=== PATIENT | female | born 1970 | race Two or more races ===

== ENCOUNTER 2024-03-29 10:26 | Inpatient (IN) | payer MEDICAID, SELFPAY ==
[2024-03-29] VITALS (51 sets, daily range): BP systolic 127–182; BP diastolic 61–126; PULSE 66–92; RESP 13–98; TEMP 35.9–37.4; O2SAT 92–99; BMI 37.6
--- NOTE | 2024-03-29 10:39 | XR_ITS ---
Examination: CTA carotids with intravenous contrast CTA brain, head with intravenous contrast. 2-D sagittal, coronal reconstructions. 3-D reconstructions. Exam date and time: March 29, 2024 at 1056 hours INDICATIONS: Stroke alert, onset left-sided facial paresthesias altered mental status pain at the base of the head beginning this morning CTDI: vol (mGy) 29.7 DLP: (mGycm) 428 Technique: Multiple CTA axial brain, head carotid images post intravenous contrast injection 75 cc, Isovue-370. 2-D sagittal, coronal reconstructions. 3-D reconstructions, 3-D post processing including vascular maximum intensity projection images. Low dose protocols were performed. One or more of the following dose reduction techniques were used; automated exposure control, adjustment of the mA and/or KV according to patient size, use of iterative reconstruction technique. Findings: No significant common carotid carotid bifurcation or internal carotid artery stenoses Dominant left vertebral artery with no critical stenoses No cerebral large vessel arterial occlusions, thrombus, dissection or cerebral aneurysm IMPRESSION: No significant neck arterial stenoses No cerebral large vessel arterial occlusions, thrombus, dissection or cerebral aneurysm Brain MRI MRA without contrast follow-up would best assess for demyelinating disease, acute ischemic change
--- NOTE | 2024-03-29 10:39 | XR_ITS ---
Examination: CT brain head without contrast. 2-D sagittal coronal reconstructions Date and time of exam:March 29, 2024 1043 hours INDICATIONS: Stroke alert onset left-sided facial paresthesias and pain at the base of the head, history CVA right basal ganglia CTDI: vol (mGy):53 DLP: (mGycm):1028 Technique: Multiple CT axial sections of the brain have been obtained, 5 mm slice thickness. Contrast has not been administered. 2-D sagittal, coronal reconstructions have been obtained Low dose protocols were performed. One or more of the following dose reduction techniques were used; automated exposure control, adjustment of the mA and/or KV according to patient size, use of iterative reconstruction technique. Findings: No significant ventricular enlargement. Small old infarct right basal ganglia Intra-axial or extra-axial hemorrhage density is not seen. No mass effect or midline shift Basal cisterns are not remarkable. Fourth ventricle is midline. Cranial vault intact. Impression: Negative for acute hemorrhage, mass effect or midline shift Brain MRI follow-up would best assess for demyelinating disease, acute ischemic change
--- NOTE | 2024-03-29 10:39 | EKG_ITS ---
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
--- NOTE | 2024-03-29 10:43 | PD.EDNEURO ---
Neuro Symptoms Deficit-RME/HPI General Chief Complaint: Neuro Symptoms/Deficit Stated Complaint: concerned for stroke Time Seen by Provider: 03/29/24 10:37 Arrival date/time: 03/29/24 10:26 RME / HPI RME / HPI Narrative: 53 year old female with history of CVA 5 years ago, hypertension, hyperlipidemia presents to the ED for complaint of I think I'm having a stroke . Patient states she woke up at around 05:00 am today at her usual state of health. Says she used the restroom, had breakfast, drank coffee, and watched a movie. States she was having a posterior headache/neck pain and went to lay in bed where shortly after began to dose off and was woken up by the numbness sensation ~ 09:30am. States her symptoms today are similar the previous CVA 5 years ago and is concerned. Denies fevers, chills, vision changes, n/v, change in speech or gait. Mentioned she is currently on Aspirin 325mg, no other blood thinner use. Related Data Home Medications ?Medication ?Instructions ?Recorded ?Confirmed Amlodipine Bes * (NORVASC *) 1 tab PO QDAY #0 tabs 10/19/16 12/29/21 aspirin 325 mg tablet 81 mg PO 1XD 12/29/21 03/29/24 hydrochlorothiazide 25 mg tablet 25 mg PO 1XD 12/29/21 03/29/24 losartan 100 mg tablet 100 mg PO 1XD 12/29/21 03/29/24 amlodipine 5 mg tablet 5 mg PO QDAY 03/29/24 03/29/24 Allergies Allergy/AdvReac Type Severity Reaction Status Date / Time No Known Allergies Allergy Unverified 03/29/24 10:28 Review of Systems Review of Systems Narrative Review of Systems: Gen: No fever, no chills, no weight loss EYES: No discharge, no visual changes, no pain HEENT: No ear pain, no congestion, no sore throat PULM: no shortness of breath, no cough, no congestion CV: No chest pain, no dyspnea on exertion, no palpitations, no chest tightness GI: No nausea, no vomiting, no diarrhea, no pain, no constipation : No frequency, no urgency,? no dysuria Musc/skel: +neck pain. No joint pain, no back pain Skin: No rash, no ecchymosis, no lesions Psyc: No hallucinations, no depression Heme/Lymph: No easy bleeding or bruising tendencies Neuro: +Left sided weakness, + headache Past Medical History Past Medical History NEUROLOGIC: Positive Neurological Disorders and Cerebrovascular Accident CARDIAC: Positive Cardiac Disorders, Hypercholesterolemia and Hypertension GASTROINTESTINAL: Positive Obesity REPRODUCTIVE: Positive Previous Pregnancies (4) Family History FAMILY HISTORY: Negative Family Psychiatric Problems, Family Respiratory Disorders, Family Cardiac Disorders, Family Gastrointestinal Problems, Family Cancer or Family Surgery Social History SMOKING STATUS: Never smoker SECOND HAND EXPOSURE: No SUBSTANCE USE: does not use ED Exam Narrative Physical exam: GENERAL APPEARANCE: AxOx4, nontoxic appearing. HEENT: NC, AT. MMM. EOMI, clear conjunctiva, oropharynx clear. NECK: Supple without lymphadenopathy. No stiffness or restricted ROM. HEART: Normal rate and regular rhythm, normal S1/S1, no m/r/g LUNGS: CTAB, moving air well. No crackles or wheezes are heard. ABDOMEN: Soft, nontender, nondistended with good bowel sounds heard. BACK: No midline C/T/L spine pain or deformity, No CVAT, no obvious deformity. EXTREMITIES: Without cyanosis, clubbing or edema. MUSCULOSKELETAL: FROM of all major joints, no chest tenderness NEUROLOGICAL: Normal speech, no facial droop, mild drift of the left upper extremity, gait not tested. Alert and oriented. Skin: Warm and dry without any rash. Course Quality Measures Suspected type of Stroke: Acute Ischemic Last known well (date): 03/29/24 Last known well (time): 09:30 Tenecteplase given: within 60 min of arrival (TNKase administered at 11:20 am ) stroke Orders Category Date Time Status Assess for orolingual angioedema NOW Care 03/29/24 11:15 Ordered Bedside Blood Glucose NOW Care 03/29/24 10:39 Active Commercial Underwriter NOW Care 03/29/24 10:39 Active Continuous Pulse Oximetry NOW Care 03/29/24 10:39 Completed EKG (ED ONLY) *Do not use* NOW Care 03/29/24 10:39 Completed In and Out Catheter NEEDED Care 03/29/24 10:39 Active Insert IV NOW Care 03/29/24 10:39 Active NIH Stroke Scale Q4H START 00 Care 03/29/24 11:02 Active NIH Stroke Scale now Care 03/29/24 10:39 Active NPO NOW Care 03/29/24 10:39 Active NPO NOW Care 03/29/24 11:02 Active Neuro Check [id number] Care 03/29/24 11:02 Active Neuro Check Q30MIN Care 03/29/24 10:40 Active Nurse Swallow Screen x1 Care 03/29/24 10:39 Active Consult to Neurology / Tele-Neurology Routine Cons 03/29/24 10:39 Active Diet NPO (NOW) Diet 03/29/24 11:[address] angio stroke protocol Stat Exams 03/29/24 10:[address] stroke protocol Stat Exams 03/29/24 10:39 Completed EKG (ED Only) Stat Exams 03/29/24 10:39 Ordered CBC Stat Lab 03/29/24 10:48 Completed Comprehensive Metabolic Panel Stat Lab 03/29/24 10:48 Completed Magnesium Stat Lab 03/29/24 10:48 Completed Partial Thromboplastin Time Stat Lab 03/29/24 10:49 Completed Prothrombin Time with INR Stat Lab 03/29/24 10:49 Completed Troponin I Stat Lab 03/29/24 10:48 Completed Urinalysis Stat Lab 03/29/24 10:39 Ordered Urine Culture Stat Lab 03/29/24 10:39 Ordered Labetalol IV [Trandate IV] Med 03/29/24 11:02 Discontinued 10 mg IVP PRNMRX1 PRN Labetalol IV [Trandate IV] Med 03/29/24 11:02 Discontinued 10 mg IVP PRNMRX1 PRN Labetalol IV [Trandate IV] Med 03/29/24 11:04 Discontinued 100 mg .ROUTE .STK-MED ONE Nicardipine/Ns 20Mg Ivpb [Cardene Ivpb] Med 03/29/24 11:02 Hold 20 mg in 200 ml IV 5 mg/hr Ondansetron Inj [Zofran Inj] Med 03/29/24 10:39 Active 4 mg IV Q4HR PRN Tenecteplase Inj [TNKase Inj] Med 03/29/24 11:02 Discontinued 23 mg IV X1 ONE Tenecteplase Inj [TNKase Inj] Med 03/29/24 11:05 Discontinued 50 mg .ROUTE .STK-MED ONE Oxygen Delivery NOW RT 03/29/24 10:39 Completed Reevaluation(s) Reevaluation #1: Patient reports the numbness has resolved although reports she still has neck pain. Time: 11:45 Vital Signs Vital signs: Vital Signs Temperature 99.3 F 03/29/24 10:32 Pulse Rate 92 03/29/24 10:32 Respiratory Rate 20 03/29/24 10:32 Blood Pressure 176/110 H 03/29/24 10:32 Pulse Oximetry (%) 97 03/29/24 10:32 Oxygen Delivery Method Room Air 03/29/24 10:32 Pulse ox is 97% on room air which is adequate. Neuro Symptoms / Deficit MDM Narrative MDM Narrative:: Sintia Hoang am scribing for and in the presence of Dr. Diaz. Patient data External records reviewed:: [facility] previous records (I reviewed admission from 12/29/2021 through 12/31/2021 for acute acalculous cholecystitis. Patient reports she was evaluated here 5 years ago diagnosed with a stroke however there are no records of that. ) Clinical information provided by:: patient Social determinants that could affect healthcare access:: none Patient has the following chronic illnesses:: CVA, HTN, hyperlipidemia How is presenting disease/condition affected by chronic disease/condition?: exacerbated by Evaluation data The following diagnostics were reviewed and interpreted by me:: lab results, radiology exam(s) (Head CT my interpretation, no SAH.) and EKG tracing(s) Lab and/or radiology exams considered but not ordered:: None Interpretation Summary: Ordering Physician: Tyrese Diaz MD Date of Service: 03/29/24 Procedure(s): CT stroke protocol Accession Number(s): [id number] cc: Tyrese Diaz MD; Levi Breen MD~ Examination: CT brain head without contrast. 2-D sagittal coronal reconstructions Date and time of exam:March 29, 2024 1043 hours INDICATIONS: Stroke alert onset left-sided facial paresthesias and pain at the base of the head, history CVA right basal ganglia CTDI: vol (mGy):53 DLP: (mGycm):1028 Technique: Multiple CT axial sections of the brain have been obtained, 5 mm slice thickness. Contrast has not been administered. 2-D sagittal, coronal reconstructions have been obtained Low dose protocols were performed. One or more of the following dose reduction techniques were used; automated exposure control, adjustment of the mA and/or KV according to patient size, use of iterative reconstruction technique. Findings: No significant ventricular enlargement. Small old infarct right basal ganglia Intra-axial or extra-axial hemorrhage density is not seen. No mass effect or midline shift Basal cisterns are not remarkable. Fourth ventricle is midline. Cranial vault intact. Impression: Negative for acute hemorrhage, mass effect or midline shift Brain MRI follow-up would best assess for demyelinating disease, acute ischemic change Dictated By:Levi Breen MD Signed By:<Electronically signed by Levi Breen MD in OV>03/29/24 1052 Ordering Physician: Tyrese Diaz MD Date of Service: 03/29/24 Procedure(s): CT angio stroke protocol Accession Number(s): [id number] cc: Tyrese Diaz MD; Levi Breen MD~ Examination: CTA carotids with intravenous contrast CTA brain, head with intravenous contrast. 2-D sagittal, coronal reconstructions. 3-D reconstructions. Exam date and time: March 29, 2024 at 1056 hours INDICATIONS: Stroke alert, onset left-sided facial paresthesias altered mental status pain at the base of the head beginning this morning CTDI: vol (mGy) 29.7 DLP: (mGycm) 428 Technique: Multiple CTA axial brain, head carotid images post intravenous contrast injection 75 cc, Isovue-370. 2-D sagittal, coronal reconstructions. 3-D reconstructions, 3-D post processing including vascular maximum intensity projection images. Low dose protocols were performed. One or more of the following dose reduction techniques were used; automated exposure control, adjustment of the mA and/or KV according to patient size, use of iterative reconstruction technique. Findings: No significant common carotid carotid bifurcation or internal carotid artery stenoses Dominant left vertebral artery with no critical stenoses No cerebral large vessel arterial occlusions, thrombus, dissection or cerebral aneurysm IMPRESSION: No significant neck arterial stenoses No cerebral large vessel arterial occlusions, thrombus, dissection or cerebral aneurysm Brain MRI MRA without contrast follow-up would best assess for demyelinating disease, acute ischemic change Dictated By:Levi Breen MD Signed By:<Electronically signed by Levi Breen MD in OV>03/29/24 1116 Medications / Prescriptions Medications or Prescriptions considered but not ordered:: None Medication administrations:: Medication Administration History Acetaminophen (Acetaminophen 325 Mg Tablet) 650 mg PO Q4HR PRN PRN Reason: Pain Scale 1-3 or Fever >100.4 Stop: 04/28/24 13:10 Amlodipine Besylate (Amlodipine Besylate 5 Mg Tablet) 5 mg PO QDAY [place] Stop: 04/29/24 08:59 Last Admin: 03/30/24 08:11 Dose: 5 mg Documented By: AG Atorvastatin Calcium (Atorvastatin Calcium 20 Mg Tablet) 40 mg PO HS [place] Stop: 04/28/24 20:59 Last Admin: 03/29/24 20:10 Dose: 40 mg Documented By: MICHAEL Nicardipine/Sodium Chloride (Cardene Ivpb) 20 mg in 200 mls @ 50 mls/hr IV .Q4H PRN; Protocol PRN Reason: Per Nicardipine Stroke Protocol Stop: 04/28/24 11:01 Last Titration: 03/30/24 08:22 Dose: 0 mg/hr, 0 mls/hr Documented By: Titration: 03/30/24 08:00 Dose: 2.5 mg/hr, 25 mls/hr Documented By: Titration: 03/30/24 07:00 Dose: 2.5 mg/hr, 25 mls/hr Documented By: Titration: 03/30/24 06:00 Dose: 2.5 mg/hr, 25 mls/hr Documented By: Titration: 03/30/24 05:00 Dose: 2.5 mg/hr, 25 mls/hr Documented By: Titration: 03/30/24 04:00 Dose: 2.5 mg/hr, 25 mls/hr Documented By: Titration: 03/30/24 03:00 Dose: 2.5 mg/hr, 25 mls/hr Documented By: Titration: 03/30/24 02:00 Dose: 2.5 mg/hr, 25 mls/hr Documented By: Titration: 03/30/24 01:00 Dose: 2.5 mg/hr, 25 mls/hr Documented By: Admin: 03/30/24 00:35 Dose: 2.5 mg/hr, 25 mls/hr Documented By: Titration: 03/30/24 00:35 Dose: Infused Documented By: Titration: 03/30/24 00:00 Dose: 2.5 mg/hr, 25 mls/hr Documented By: Titration: 03/29/24 23:00 Dose: 2.5 mg/hr, 25 mls/hr Documented By: Titration: 03/29/24 22:00 Dose: 2.5 mg/hr, 25 mls/hr Documented By: Titration: 03/29/24 21:00 Dose: 2.5 mg/hr, 25 mls/hr Documented By: Titration: 03/29/24 20:00 Dose: 2.5 mg/hr, 25 mls/hr Documented By: Titration: 03/29/24 19:00 Dose: 2.5 mg/hr, 25 mls/hr Documented By: Titration: 03/29/24 17:34 Dose: 2.5 mg/hr, 25 mls/hr Documented By: Admin: 03/29/24 17:19 Dose: 5 mg/hr, 50 mls/hr Documented By: Lorazepam (Lorazepam 0.5 Mg Tablet) 0.5 mg PO Q4HR PRN PRN Reason: CIWA Score 2-6 Stop: 04/03/24 17:42 Lorazepam (Lorazepam 0.5 Mg Tablet) 1 mg PO Q4HR PRN PRN Reason: CIWA SCORE 7-11 Stop: 04/03/24 17:42 Lorazepam (Lorazepam 0.5 Mg Tablet) 2 mg PO Q4HR PRN PRN Reason: CIWA SCORE 12-15 Stop: 04/03/24 17:42 Losartan Potassium (Losartan Potassium 25 Mg Tablet) 100 mg PO QDAY [place] Stop: 04/29/24 06:59 Last Admin: 03/30/24 07:20 Dose: 100 mg Documented By: AG Ondansetron HCl (Ondansetron Inj 2 Mg/Ml Inj 2 Ml) 4 mg IV Q4HR PRN PRN Reason: NAUSEA OR VOMITING Stop: 04/28/24 10:38 Discontinued Medications Diphenhydramine HCl (Diphenhydramine Inj 50 Mg/Ml Vial) 25 mg IVP X1 ONE Stop: 03/29/24 16:38 Last Admin: 03/29/24 16:54 Dose: 25 mg Documented By: AT Labetalol HCl (Labetalol Inj 5 Mg/Ml Vial 20 Ml) 10 mg IVP PRNMRX1 PRN PRN Reason: SBP> 185 mmHg and/or DBP greater than 110 Stop: 03/29/24 13:02 Labetalol HCl (Labetalol Inj 5 Mg/Ml Vial 20 Ml) 10 mg IVP PRNMRX1 PRN PRN Reason: SBP> 180 mmHg or DPB> 105 Last Admin: 03/29/24 17:04 Dose: 10 mg Documented By: Admin: 03/29/24 16:07 Dose: 10 mg Documented By: RM Labetalol HCl (Labetalol Inj 5 Mg/Ml Vial 20 Ml) Confirm Administered Dose 100 mg .ROUTE .STK-MED ONE Stop: 03/29/24 11:05 Last Admin: 03/29/24 11:11 Dose: Not Given Documented By: SL Non-Admin Reason: Override Medication Lorazepam (Lorazepam 2 Mg/Ml Vial) 1 mg IVP X1 ONE Stop: 03/30/24 11:22 Last Admin: 03/30/24 11:26 Dose: 1 mg Documented By: AG Nicardipine HCl (Nicardipine 20 Mg Capsule) 20 mg PO TID [facility] Stop: 04/29/24 06:59 Potassium Chloride (Potassium Chloride 20 Meq Tabcr) 40 meq PO X1 ONE Stop: 03/30/24 07:36 Last Admin: 03/30/24 08:12 Dose: 40 meq Documented By: AG Potassium Chloride (Potassium Chloride 20 Meq Tabcr) 20 meq PO X1 ONE Stop: 03/30/24 10:31 Last Admin: 03/30/24 10:22 Dose: 20 meq Documented By: BAL Tenecteplase (Tenecteplase Inj 50 Mg Vial) 23 mg 0.25 mg/kg (23 mg) IV X1 ONE Stop: 03/29/24 11:03 Last Admin: 03/29/24 11:18 Dose: 23 mg Documented By: TAISHA Comments: Tenecteplase (Tenecteplase Inj 50 Mg Vial) Confirm Administered Dose 50 mg .ROUTE .STK-MED ONE Stop: 03/29/24 11:06 Last Admin: 03/29/24 11:11 Dose: Not Given Documented By: TAISHA Non-Admin Reason: Override Medication See above Consultations Consultation(s) initiated? (list below): Yes Consultation #1 (Physician, Specialty, Details): I spoke with teleneurologist Dr. Pedraza. States patient is a candidate for TNKase and will place the order. Risks and benefits were discussed and patient is in agreement. Time: 11:05 Consultation #2 (Physician, Specialty, Details): I spoke with answering service telephone operator Dr. Collado. Discussed patients PMHx, HPI, ED course, exam findings, labs, and radiology results. He accepts the patient for admission. Time: 11:50 Diagnosis Neuro Differential Diagnosis: subarachnoid hemorrhage, cerebrovascular accident and transient cerebral ischemia Most likely diagnosis given after review of the tests above:: CVA Admission Indicated Admission indicated?: indicated Admission Request Was there a request for admission?: Yes Admission Attestation Admission request attestation: Discussed case with [] from Hospitalist service regarding admission. Discussed patients ED course, exam findings, labs, and radiology results. The Hospitalist [agrees,declines] to accept the patient for admission. Disposition Plan Disposition Plan: Admit Critical Care Time Critical Care Time Critical Care Time: Yes Total Critical Care Time (min.): 60 Attestation: The high probability of sudden, clinically significant deterioration in the patient's condition required the highest level of my preparedness to intervene urgently. The services I provided to this patient were to treat and/or prevent clinically significant deterioration. Services included the following: chart data review, reviewing nursing notes and/or old charts, documentation time, remediation bioanalytics consultant collaboration regarding findings and treatment options, medication orders and management, direct patient care, vital sign assessments and ordering, interpreting and reviewing diagnostic studies and lab tests. Aggregate critical care time includes only time during which I was engaged in work directly related to the patient's care, as described above, whether at bedside or elsewhere in the Emergency Department. It did not include time spent performing other reported procedures or the services of residents, students, nurses or physician assistants. Discharge Plan Plan Patient Disposition: Admit Acute Care w/in Hospital Problem List Clinical Impression: Cerebrovascular accident
[2024-03-29 10:59] LABS: Basophils # (Auto) 0.1 Thou/mm3 (0.0-0.2); Basophils % (Auto) 1 % (0-2.5); Eosinophils # (Auto) 0.1 Thou/mm3 (0.0-0.5); Eosinophils % (Auto) 2 % (0-10); Hematocrit 40.1 % (36.0-46.0); Hemoglobin 13.9 g/dL (12.0-16.0); Immature Granulocytes % (Auto) 1 % (0-0); Immature Granulocytes Auto 0.04 Thou/mm3 (0.00-0.00); Lymphocytes % (Auto) 28 % (10-50); Mean Corpuscular HGB Conc 34.7 g/dl (31.0-37.0); Mean Corpuscular Hemoglobin 29.3 pg (25.0-35.0); Mean Corpuscular Volume 84 fL (80-100); Monocytes # (Auto) 0.6 Thou/mm3 (0.0-0.8); Monocytes % (Auto) 8 % (0-12); Neutrophils # (Auto) 4.3 Thou/mm3 (1.8-7.7); Neutrophils % (Auto) 60 % (37-80); Nucleated Red Blood Cell % 0 /100 WBC (0); Platelet Count 262 Thou/mm3 (140-440); RDW Standard Deviation 39.5 fL (36.4-46.3); Red Blood Count 4.75 Miln/mm3 (4.00-5.20); White Blood Count 7.2 Thou/mm3 (3.6-11.0)
[2024-03-29 11:16] LABS: Partial Thromboplastin Time 24.3 Seconds (22.0-36.0); Prothrombin Time 10.5 Seconds (9.0-12.2)
[2024-03-29] MEDS: TENECTEPLASE INJ 50 MG VIAL 23 MG IV (11:18)
[2024-03-29 11:21] LABS: Alanine Aminotransferase 18 U/L (10-49); Albumin, Serum 4.6 gm/dL (3.5-5.0); Albumin/Globulin Ratio 1.8 (1.2-2.2); Alkaline Phosphatase 111 U/L (46-116); Anion Gap 9 (7-16); Aspartate Amino Transferase 16 U/L (0-34); BUN/Creatinine Ratio 21 Ratio (12-20); Bilirubin,Total 0.3 mg/dL (0.3-1.2); Blood Urea Nitrogen 15 mg/dL (9-23); Calcium 9.2 mg/dL (8.3-10.6); Calcium (Corrected) 9.2 mg/dL (8.5-10.1); Carbon Dioxide 26.4 mMol/L (20.0-31.0); Chloride 107 mMol/L (98-107); Creatinine (Component) 0.7 mg/dL (0.6-1.3); Estimated Creatinine Clearance 98.9 mL/min (>60); Globulin 2.6 gm/dL (2.3-3.5); Glucose 152 mg/dL (74-106); Osmolality,Calculated 286 (275-295); Potassium 3.3 mMol/L (3.4-5.1); Sodium 142 mMol/L (136-145); Total Protein 7.2 gm/dL (5.7-8.2); Troponin I < 0.002 ng/mL (0.0-0.045); eGFR > 60 See Note
--- NOTE | 2024-03-29 12:13 | PC.NURSE ---
Per pt she went to lay down for a nap, got a bad headache at the base of her head, then felt some tingling to the left side arm and leg. Pt had a stroke in 2016, where her left side was affected. stroke alert was initiated, and stroke protocol followed. pt did receive TNK (see MAR). This RN is currently at bedside, also pts at bedside attentive to pt. Pt currently talking on cellphone, VSS on tele.
--- NOTE | 2024-03-29 12:44 | PD.TNEURO ---
Tele Neuro Consultation Consultation Date 03/29/24 Most Recent Vital Signs Last Vital Signs Temp 99.3 F 03/29/24 10:32 Pulse 76 03/29/24 12:33 Resp 16 03/29/24 12:33 BP 160/72 H 03/29/24 12:33 Pulse Ox 97 03/29/24 12:33 O2 Del Method Room Air 03/29/24 12:33 Laboratory-Coagulation Panel PT 10.5 Seconds (9.0-12.2) 03/29/24 10:49 INR 1.0 (0.9-1.3) 03/29/24 10:49 APTT 24.3 Seconds (22.0-36.0) 03/29/24 10:49 Consultation Narrative [facility] TeleNeurology Consult Services Patient Name:???Desirae Gaona Date of :???1970 Identification Number:??? Date of Service:???03/29/2024 10:39:21 Diagnosis:?I63.89 - Cerebrovascular accident (CVA) due to other mechanism ([facility]) Impression: ?Desirae Gaona is a 53 yo F w/ a hx of stroke who presents with left sided weakness. Exam is notable for left hemiparesis and left hemisensory disturbance. Also has gait impairment due to LLE weakness. Head CT showed no acute intracranial pathology. No LVO on CTA. Presentation is concerning for acute ischemic stroke. Decided to proceed with tenecteplase after discussing the risks and benefit of treatment with the patient. Recommend the following: ? - Patient be admitted to the inpatient hospitalist service and be monitored in the ICU ?- Monitor and document vital signs/blood pressure with neuro checks/NIHSS for the first 24 hrs using the following parameters: ?- Check every 15 min for 2 hours following IV tenecteplase administration ?- Then check every 30 min for 6 hours ?- Then check every 1 hour for 16 hours ?- Allow permissive HTN. If SBP > 180 or DBP > 105 on 2 consecutive checks, then administer PRN IV antihypertensive meds. ?- Repeat head CT at 24 hrs. ?- MRI brain w/o contrast. 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 Our recommendations are outlined below. Recommendations: IV Tenecteplase recommended. I confirmed the following. (Patient name, , MRN, Blood Pressure, dose of Thrombolytic and waste, weight completed by stretcher/scale not stated weight, have ED staff inform ED MD of thrombolytic decision) IV Tenecteplase Total Dose ? 23.4 mg Routine post Thrombolytic monitoring including neuro checks and blood pressure control during/after treatment Monitor blood pressure Check blood pressure and neuro assessment every 15 min for 2 h, then every 30 min for 6 h, and finally every hour for 16 h. Manage Blood Pressure per post Thrombolytic protocol. ? Follow designated hospital protocol for admission and post thrombolytic care ? CT brain 24 hours post Thrombolytic ? NPO until swallowing screen performed and passed ? No antiplatelet agents or anticoagulants (including heparin for DVT prophylaxis) in first 24 hours ? No Ortiz catheter, nasogastric tube, arterial catheter or central venous catheter for 24 hr, unless absolutely necessary ? Telemetry ? Bedside swallow evaluation ? HOB less than 30 degrees ? Euglycemia ? Avoid hyperthermia, PRN acetaminophen ? DVT prophylaxis ? Inpatient Neurology Consultation ? Stroke evaluation as per inpatient neurology recommendations Discussed with ED physician Advanced Imaging:CTA Head and Neck Completed. LVO:No Patient in not a candidate for IVON Metrics: Last Known Well: 03/29/2024 09:30:00 Dispatch Time: 03/29/2024 10:39:21 Arrival Time: 03/29/2024 10:26:10 Initial Response Time: 03/29/2024 10:41:31Symptoms: left sided weakness and numbness. Initial patient interaction: 03/29/2024 10:44:00 NIHSS Assessment Completed: 03/29/2024 10:48:00Patient is a candidate for Thrombolytic. Thrombolytic Medical Decision: 03/29/2024 11:10:00 Needle Time: 03/29/2024 11:19:58Weight Noted by Staff: 93.[address] head showed no acute hemorrhage or acute core infarct. Primary Provider Notified of Diagnostic Impression and Management Plan on: 03/29/2024 11:31:00 Thrombolytic Contraindications: Last Known Well > 4.5 hours:?No CT Head showing hemorrhage:?No Ischemic stroke within 3 months:?No Severe head trauma within 3 months:?No Intracranial/intraspinal surgery within 3 months:?No History of intracranial hemorrhage:?No Symptoms and signs consistent with an SAH:?No GI malignancy or GI bleed within 21 days:?No Coagulopathy: Platelets <100 000 /mm3, INR >1.7, aPTT>40 s, or PT >15 s:?No Treatment dose of LMWH within the previous 24 hrs:?No Use of NOACs in past 48 hours:?No Glycoprotein IIb/IIIa receptor inhibitors use:?No Symptoms consistent with infective endocarditis:?No Suspected aortic arch dissection:?No Intra-axial intracranial neoplasm:?No Thrombolytic Decision and Management Plan: Management with thrombolytic treatment was explained to the Patient as was risks and benefits and alternatives to the treatment. Patient agrees with the decision to proceed with thrombolytic treatment. . All questions were answered and the Patient expressed understanding of the treatment plan. History of Present Illness:Patient is a 53 year old Female. Patient was brought by private transportation with symptoms of left sided weakness and numbness. Desirae Gaona is a 53 yo F w/ a hx of stroke who presents with left sided weakness. LKN at 0930. Around that time, developed left arm and leg weakness and numbness. Also experienced gait instability. Has some residual paresthesia from prior stroke but denies any significant disability. ? Past Medical History: ?Stroke Medications: No Anticoagulant use? Antiplatelet use:?Yes?ASA Reviewed EMR for current medications Allergies:? Reviewed Social History: Smoking: No Alcohol Use: No Drug Use: No Family History: There is no family history of premature cerebrovascular disease pertinent to this consultation ROS : 14 Points Review of Systems was performed and was negative except mentioned in HPI. Past Surgical History: There Is No Surgical History Contributory To Today?s Visit ? Examination: BP(163/79),?Pulse(80),?Blood Glucose(161) 1A: Level of Consciousness - Alert; keenly responsive?+ 0 1B: Ask Month and Age - Both Questions Right?+ 0 1C: Blink Eyes & Squeeze Hands - Performs Both Tasks?+ 0 2: Test Horizontal Extraocular Movements - Normal?+ 0 3: Test Visual Ceja - No Visual Loss?+ 0 4: Test Facial Palsy (Use Grimace if Obtunded) - Normal symmetry?+ 0 5A: Test Left Arm Motor Drift - Drift, but doesn't hit bed?+ 1 5B: Test Right Arm Motor Drift - No Drift for 10 Seconds?+ 0 6A: Test Left Leg Motor Drift - Drift, but doesn't hit bed?+ 1 6B: Test Right Leg Motor Drift - No Drift for 5 Seconds?+ 0 7: Test Limb Ataxia (FNF/Heel-Be) - No Ataxia?+ 0 8: Test Sensation - Mild-Moderate Loss: Less Sharp/More Dull?+ 1 9: Test Language/Aphasia - Normal; No aphasia?+ 0 10: Test Dysarthria - Normal?+ 0 11: Test Extinction/Inattention - No abnormality?+ 0 NIHSS Score:?3 Pre-Morbid Modified Dickens Scale:1 Points = No significant disability despite symptoms; able to carry out all usual duties and activities Spoke with :?ED provider This consult was conducted in real time using interactive audio and video technology. Patient was informed of the technology being used for this visit and agreed to proceed. Patient located in hospital and provider located at home/office setting. Patient is being evaluated for possible acute neurologic impairment and high probability of imminent or life-threatening deterioration. I spent total of 28 minutes providing care to this patient, including time for face to face visit via telemedicine, review of medical records, imaging studies and discussion of findings with providers, the patient and/or family. Dr Dylon Pedraza [facility] For Inpatient follow-up with [facility] physician please call [facility] at . As we are not an outpatient service for any post hospital discharge needs please contact the hospital for assistance. If you have any questions for the [facility] physicians or need to reconsult for clinical or diagnostic changes please contact us via [facility] at .
--- NOTE | 2024-03-29 13:13 | ECHO_ITS ---
Transthoracic Echo Report Ht (in): 62 Wt (lb): 206 Exam Location: Portable Status: Emergency Open End Spinning Operator: Ирина Ambrosio Indications: Procedure Performed: BP: 146 / 77 HR: 81 Rhythm: Sinus Technical Quality: Fair Contrast: Agitated Saline Total Dose (mL): MEASUREMENTS (Male / Female) Normal Values 2D ECHO LV Diastolic Diameter PLAX 4.7 cm 4.2 - 5.9 / 3.9 - 5.3 cm LV Systolic Diameter PLAX 3.1 cm IVS Diastolic Thickness 1.1 cm 0.6 - 1.0 / 0.6 - 0.9 cm LVPW Diastolic Thickness 1.1 cm 0.6 - 1.0 / 0.6 - 0.9 cm LV Relative Wall Thickness 0.5 LVOT Diameter 2.1 cm LA Volume Index 24.2 cm?/m? 16 - 28 cm?/m? Ascending Aorta Diameter 3.0 cm M-MODE Aortic Root Diameter MM 2.6 cm LA Systolic Diameter MM 3.7 cm LA Ao Ratio MM 1.4 AV Cusp Separation MM 2.3 cm DOPPLER AV Peak Velocity 161.0 cm/s AV Peak Gradient 10.4 mmHg AV Mean Gradient 6.0 mmHg AV Velocity Time Integral 32.3 cm LVOT Peak Velocity 93.1 cm/s LVOT Peak Gradient 3.5 mmHg LVOT Velocity Time Integral 21.6 cm LVOT Cardiac Index 2929.3 cm?/min?m? AV Area Cont Eq vti 2.3 cm? AV Area Cont Eq pk 2.0 cm? MV Peak Velocity 99.0 cm/s MV Peak Gradient 3.9 mmHg MV Mean Velocity 67.4 cm/s MV Mean Gradient 2.0 mmHg MV Area PHT 3.5 cm? Mitral E Point Velocity 70.3 cm/s Mitral A Point Velocity 84.9 cm/s Mitral E to A Ratio 0.8 LV E' Lateral Velocity 8.7 cm/s Mitral E to LV E' Lateral Ratio 8.1 LV E' Septal Velocity 6.1 cm/s Mitral E to LV E' Septal Ratio 11.5 FINDINGS Left Ventricle Normal left ventricular size, systolic function with no obvious regional wall motion abnormalities. Mild LVH. The ejection fraction is visually estimated at 60-65%. Right Ventricle The right ventricle is normal in size and systolic function. Left Atrium The left atrium is normal by two-dimensional, color flow and Doppler imaging with no structural abnormalities, no thrombus formation present. Right Atrium The right atrium is normal by two-dimensional imaging, color flow and Doppler imaging with no struct ural abnormalities, no thrombus formation present. Atrial Septum The interatrial septum appears normal with no evidence of a shunt. Aorta The aorta is normal by two-dimensional, color flow and Doppler interrogation. Mitral Valve The mitral valve is normal by two-dimensional, color flow and Doppler interrogation. There is trace mitral valve regurgitation. Aortic Valve The aortic valve is trileaflet and normal by two-dimensional, color flow and Doppler interrogation. There is no significant aortic valve regurgitation. Tricuspid Valve The tricuspid valve is normal by two-dimensional, color flow and Doppler interrogation. There is tra ce tricuspid valve regurgitation. Pulmonic Valve The pulmonic valve is normal by two-dimensional, color flow and Doppler interrogation. There is no significant pulmonic valve regurgitation. Vessels The pulmonary artery appears normal. The inferior vena cava pulmonary and hepatic veins appear veronika l. Pericardium The pericardium is normal by two-dimensional imaging. There is no significant pericardial effusion. CONCLUSIONS Indication: Stroke Negative bubble study. Poor quality images. TTE is suboptimal to rule out PFO or ASD.. Consider DAT if high clincial suspicion. Normal LV size and function. Mild LVH. Stage I diastolic dysfunction. Estimated EF 60-65% Normal RV size and function. Trace MR, TR. Pratik Calderon (Electronically Signed) Final Date: 30 March 2024 19:03
[2024-03-29] MEDS: LABETALOL INJ 5 MG/ML VIAL 20 ML 10 MG IVP ×2 (16:07→17:04)
--- NOTE | 2024-03-29 16:24 | ESHP_ITS ---
Documentation for date of: 03/29/24 [facility] History of Present Illness Chief complaint: left sided weakness and tingling History of present illness: The patient is a 53-year-old female with a previous medical history of hypertension, CVA with no residual symptoms, dyslipidemia, cholecystectomy in 2021 who was brought to the ED by her at 10:26 AM 03/29/24 with complains of left extremities weakness and tingling, feeling that it's hard to breath. It started at 9:30 AM, was the witness. Stroke alert was initiated previous to arrival. ED course: BP 180/126, HR 92, saturated well on RA, NIHSS was 2, Head CT was negative for acute hemorrhage or midline shift. Labs were remarkable for mild hypokalemia. Teleneouro was consulted at 10:39, examination revealed NIHSS 3 left hemiparesis, left hemisensory disturbances, gait impairment due to hemiparesis. It was decided to administer tenecteplase 23.4 mg and use nicardipine PRN. After the administration of tenecteplase her symptoms has resolved. Social history: denies smoking, drinks 4-5 beers a day Patient is being admitted to the ICU for monitoring post tenecteplase administration and acute stroke management. Review of Systems Review of Systems Narrative Review of Systems: General: Denies weight loss, fever and chills. HEENT: Denies changes in vision and hearing. Resp: Denies SOB, cough and wheezing. CVS: Denies palpitations and CP. GI: Denies abdominal pain, nausea, vomiting and diarrhea. : Denies dysuria and urinary frequency. MSK: Denies myalgia and joint pain. Denies rash and pruritus. Neuro: Denies headache and syncope. Exam Vital Signs Temp Pulse Resp BP Pulse Ox O2 Del Method 98.2 F 75 18 182/88 H 97 Room Air 03/29/24 14:18 03/29/24 16:07 03/29/24 16:00 03/29/24 16:07 03/29/24 16:00 03/29/24 14:52 Narrative Exam Physical Exam General: Awake and in no acute distress. Conversational and non-toxic appearing. HEENT: Normocephalic, atraumatic, mucous membranes moist. Heart: Regular rate and rhythm, no murmurs. Lungs: Clear to auscultation with no wheezing or crackles. Abdomen: Soft, nondistended, nontender, positive bowel sounds. ?No guarding or rebound tenderness. Neurologic: Alert and oriented x3, no gross neurological deficit, and patient able to move all 4 extremities. Extremities: No edema. Skin: No rash or ecchymoses. Results: Labs 04/01/24 04:54 04/01/24 04:54 Labs: Short CBC 03/29/24 Range/Units 10:48 WBC 7.2 (3.6-11.0) Thou/mm3 Hgb 13.9 (12.0-16.0) g/dL Hct 40.1 (36.0-46.0) % Plt Count 262 (140-440) Thou/mm3 BMP 03/29/24 10:48 Sodium 142 Potassium 3.3 L Chloride 107 Carbon Dioxide 26.4 BUN 15 Creatinine 0.7 Glucose 152 H Calcium 9.2 Cardiac Enzymes 03/29/24 Range/Units 10:48 Troponin I < 0.002 (0.0-0.045) ng/mL Liver Function 03/29/24 Range/Units 10:48 Total Bilirubin 0.3 (0.3-1.2) mg/dL AST 16 (0-34) U/L ALT 18 (10-49) U/L Alkaline Phosphatase 111 (46-116) U/L Albumin 4.6 (3.5-5.0) gm/dL Quality Measures Quality Measures stroke Suspected type of Stroke: Acute Ischemic Last known well (date): 03/29/24 Last known well (time): 09:30 Tenecteplase given: within 60 min of arrival (TNKase administered at 11:20 am ) Rehab services: PT evaluation ordered and Speech Language Pathology eval ordered VTE Prophylaxis: mechanical Antithrombotic by day 2:: ordered Statin ordered: >75 y/o moderate or high intensity dose Anticoagulation ordered for A-fib or flutter (current or hx): not indicated Medications Home Medications and Allergies Home Medications ?Medication ?Instructions ?Recorded ?Confirmed ?Type aspirin 325 mg tablet 81 mg PO 1XD 12/29/21 03/29/24 History hydrochlorothiazide 25 mg tablet 25 mg PO 1XD 12/29/21 03/29/24 History losartan 100 mg tablet 100 mg PO 1XD 12/29/21 03/29/24 History Allergies Allergy/AdvReac Type Severity Reaction Status Date / Time No Known Allergies Allergy Unverified 03/29/24 10:28 Visit Medications Acetaminophen (Acetaminophen 325 Mg Tablet) 650 mg PO Q4HR PRN PRN Reason: Pain Scale 1-3 or Fever >100.4 Stop: 04/28/24 13:10 Nicardipine/Sodium Chloride (Cardene Ivpb) 20 mg in 200 mls @ 50 mls/hr IV .Q4H PRN; Protocol PRN Reason: Per Nicardipine Stroke Protocol Stop: 04/28/24 11:01 Labetalol HCl (Labetalol Inj 5 Mg/Ml Vial 20 Ml) 10 mg IVP [id number] PRN PRN Reason: SBP> 180 mmHg or DPB> 105 Last Admin: 03/29/24 16:07 Dose: 10 mg Ondansetron HCl (Ondansetron Inj 2 Mg/Ml Inj 2 Ml) 4 mg IV Q4HR PRN PRN Reason: NAUSEA OR VOMITING Stop: 04/28/24 10:38 Discontinued Medications Labetalol HCl (Labetalol Inj 5 Mg/Ml Vial 20 Ml) 10 mg IVP [id number] PRN PRN Reason: SBP> 185 mmHg and/or DBP greater than 110 Stop: 03/29/24 13:02 Tenecteplase (Tenecteplase Inj 50 Mg Vial) 23 mg 0.25 mg/kg (23 mg) IV X1 ONE Stop: 03/29/24 11:03 Last Admin: 03/29/24 11:18 Dose: 23 mg Assessment & Plan Plan The patient is a 53-year-old female with a previous medical history of hypertension, CVA with no residual symptoms, dyslipidemia, cholecystectomy in 2021 who was brought to the ED by her at 10:26 AM 03/29/24 with complains of left extremities weakness and tingling, feeling that it's hard to breath. NEURO Patient is awake, alert, and oriented x3, following commands, conversational. #Acute stroke #Alcohol use Status post tenecteplase administration. Patient is back to the baseline. Patient passed swallow evaluation, was started on the diet. Plan: - [facility] protocol Routine post Thrombolytic monitoring including neuro checks and blood pressure control during/after treatment Monitor blood pressure Check blood pressure and neuro assessment every 15 min for 2 h, then every 30 min for 6 h, and finally every hour for 16 h. -Allow permissive HTN. If SBP > 180 or DBP > 105 on 2 consecutive checks, then administer PRN IV antihypertensive meds. -CT brain 24 hours post Thrombolytic -MRI brain w/o contrast. -No antiplatelet agents or anticoagulants (including heparin for DVT prophylaxis) in first 24 hours -No Ortiz catheter, nasogastric tube, arterial catheter or central venous catheter for 24 hr, unless absolutely necessary -HOB less than 30 degrees -Euglycemia -Avoid hyperthermia, PRN acetaminophen -DVT prophylaxis - SCDs -Inpatient Neurology Consultation -Stroke evaluation as per inpatient neurology recommendations ?-Hemoglobin A1c , lipid panel ?-Telemetry ?- PT and speech evaluation - echo ordered CARDIO # Hypertension #Hyperlipidemia Plan: - Nicardipine drip if SBP > 180 or DBP > 105 on 2 consecutive checks - lipid panel - will resume aspirin after 24 hours PULM #No active problems GI #No active problems NEPHRO #No active problems URO #No active problems HEME #No active problems ENDO #No active problems ID #No active problems MSK #No active problems SKIN #No active problems DVT prophylaxis: SCDs, no pharmacological for the first 24 hrs after tenecteplase GI prophylaxis: None Diet: cardiac Ortiz: None Lines: peripheral Antibiotics: none CODE STATUS: FULL CODE Reason for ICU care: for monitoring and care post tenecteplase administration Plan of care discussed with attending Dr. Collado, PGY-[address] Poe and PGY-[address] Talley. Lashawn Farah MD, PGY 1. Attending Provider Attestation/Addendum Patient seen and examined with above resident, Lashawn Farah MD. I agree with the findings, assessment, and plan of care as documented except for any differences below. Patient admitted with ischemic CVA status post TNK administration. Patient with elevated blood pressure which will require close monitoring administration of nicardipine drip along with as needed dosing, will likely be able to transition to home regimen last 24 hours after allowance of clearance of half-life of TNK. Patient's neurologic symptoms have already resolved. She continues to be stable on room air with initial dyspnea no longer present. Patient updated at bedside plan of care per protocol including repeat imaging tomorrow and exclusion of other etiologies for her stroke. Patient appreciative of all care. is also present at bedside and was updated. Total critical care time: I personally spent 30 minutes for review of physiologic parameters, directing plan of care throughout the day, coordination of care with emergency department, and counseling patient at bedside. This is exclusive of time spent teaching housestaff or performing separate billable procedures. Patient requiring critical care services for ischemic CVA status post TNK administration and accelerated hypertension. Patient continues to have high risk for morbidity and mortality given administration of thrombolytics and uncontrolled high blood pressure.
[2024-03-29 16:36] LABS: Hematocrit 37.6 % (36.0-46.0); Hemoglobin 12.8 g/dL (12.0-16.0)
[2024-03-29] MEDS: DiphenhydrAMINE INJ 50 MG/ML VIAL 25 MG IVP (16:54)
--- NOTE | 2024-03-29 17:16 | PC.NURSE ---
Pharmacy called for Nicardipine drip
[2024-03-29] MEDS: NICARDIPINE/NS 20MG IVPB 20 MG/200 ML BAG 50 MG IV (17:19)
[2024-03-29] MEDS: ATORVASTATIN CALCIUM 20 MG TABLET 40 MG PO (20:10)
--- NOTE | 2024-03-29 23:55 | PD.NEUROPROG ---
Documentation for date of: 03/29/24 Subjective Subjective Interval history: Patient is in ICU, status post tenecteplase. Denies any paresthesias or weakness in the left hemibody. Denies any headache or dizziness. Exam - Neurology Vital Signs Temp Pulse Resp BP Pulse Ox O2 Del Method 98.2 F 76 20 130/61 97 Room Air 03/29/24 19:30 03/29/24 23:30 03/29/24 23:30 03/29/24 23:30 03/29/24 23:30 03/29/24 18:15 Narrative Exam GENERAL APPEARANCE: Well hydrated, well-nourished in no acute distress. HEENT: Normocephalic, atraumatic, extraocular movements intact. Pupils: Equal reacting to light and accommodation NECK: Supple, no JVD or bruits. CARDIOVASULAR: Heart: S1, S2 heard, regular without S3-S4 or murmur no rubs or gallops. LUNGS/CHEST: Clear to auscultation bilaterally. No rails, rhonchi, or wheezing. Normal inspection. ABDOMEN: Soft, nontender, with normal bowel sounds. No pulsatile masses. No rebound, rigidity, or guarding. Normal inspection and palpation. EXTREMITIES: Normal inspection and palpation. No edema, clubbing or cyanosis. SKIN: Warm and dry without rashes. Normal inspection. MUSCULOSKELETAL: No cervical, thoracic, lumbar or midline bony tenderness. Normal inspection. NEURO: Alert, awake and oriented x3. Cranial nerves: II through XII grossly intact. Speech and language: Normal with no dysarthria or dysphasia. Motor system: Tone and bulk: Normal: Strength: 5 out of 5 in all 4 extremities; No pronator drift noted. Deep tendon reflexes: 2+ bilaterally symmetrical. Plantar reflex: Downgoing bilaterally. Sensory system: Intact to all modalities of sensation bilaterally. Coordination: Intact to eprwor-mpld-susck and epqn-ydqy-[id number] test bilaterally. No ataxia, no dysmetria, or dysdiadochokinesia noted. No intention tremors noted. Gait: Not tested. No signs of meningeal irritation noted. PSYCHIATRIC: Normal mood and affect. Objective Labs 03/29/24 16:16 03/29/24 10:48 Labs: Laboratory Results - last 24 hr 03/29/24 03/29/24 03/29/24 10:48 10:49 16:16 WBC 7.2 RBC 4.75 Hgb 13.9 12.8 Hct 40.1 37.6 MCV 84 MCH 29.3 MCHC 34.7 RDW Std Deviation 39.5 Plt Count 262 Neut % (Auto) 60 Lymph % (Auto) 28 [place] % (Auto) 8 Eos % (Auto) 2 Baso % (Auto) 1 Neut # (Auto) 4.3 Lymph # (Auto) 2.0 [place] # (Auto) 0.6 Eos # (Auto) 0.1 Baso # (Auto) 0.1 Immature Gran # (Auto) 0.04 H Absolute Nucleated RBC 0.00 Immature Gran % 1 H Nucleated RBC % 0 PT 10.5 INR 1.0 APTT 24.3 Sodium 142 Potassium 3.3 L Chloride 107 Carbon Dioxide 26.4 Anion Gap 9 BUN 15 Creatinine 0.7 Estim Creat Clear Calc 98.9 eGFR > 60 BUN/Creatinine Ratio 21 H Glucose 152 H Calculated Osmolality 286 Calcium 9.2 Corrected Calcium 9.2 Magnesium 2.0 Total Bilirubin 0.3 AST 16 ALT 18 Alkaline Phosphatase 111 Troponin I < 0.002 Total Protein 7.2 Albumin 4.6 Globulin 2.6 Albumin/Globulin Ratio 1.8 Assessment & Plan Assessment and plan (1) Cerebrovascular accident: Status: Acute Assessment and plan: Status post tenecteplase, complete resolution of symptoms. No residual deficit noted Follow-up with MRI brain and rest of the workup Continue to closely monitor. (2) Hypertension: Status: Acute Assessment and plan: With the permissive blood pressure control
[2024-03-30] VITALS (60 sets, daily range): BP systolic 112–170; BP diastolic 59–86; PULSE 66–92; RESP 15–26; TEMP 36.4–37.1; O2SAT 93–99; BMI 37.6
--- NOTE | 2024-03-30 | XR_ITS ---
Examination: MRI brain without intravenous contrast. Date and time of exam: March 30, 2024 1145 hours INDICATIONS: Stroke alert March 29, 2024, onset focal neurologic deficit, lethargy, altered mental status, unable to move the left side of the body on examination October 04, 2013 Technique: Multiple axial and sagittal images of the brain obtained. Siemens high-resolution 1.5 Barb short bore scanners utilized. Sagittal sections, T1-weighted, TR 500, TE 14, are performed. Axial sections proton-density and T2-weighted have been obtained. Inversion recovery axial images, TR 9, 260, TE 111, TI 2500. Diffusion weighted images, axial sections, TR 4800, TE 128, B value 1000 Axial sections, ADC map, TR 4800, TE 128 Findings: Enlargement of the sella turcica is not present. The optic chiasm and infundibular are not remarkable. Prepontine and interpeduncular cisterns are not enlarged. There is no localized enlargement of the medulla or laura. Fourth ventricle and cerebellar tonsils appear normal in position. No subacute area of hemorrhage density is seen. Mass in the cerebellopontine angle region is not evident. Globes symmetrical. Orbital musculature including medial lateral rectus muscles do not exhibit abnormality. Diffusion-weighted images demonstrate no focus of restricted diffusion. Small old infarcts right basal ganglia Mass effect upon the ventricular system is not identified. Impression: Negative for acute hemorrhage mass effect or midline shift No acute infarct Small old infarcts right basal ganglia
[2024-03-30] MEDS: NICARDIPINE/NS 20MG IVPB 20 MG/200 ML BAG 25 MG IV (00:35)
[2024-03-30 05:52] LABS: Basophils % (Auto) 1 % (0-2.5); Eosinophils # (Auto) 0.1 Thou/mm3 (0.0-0.5); Eosinophils % (Auto) 2 % (0-10); Hematocrit 36.5 % (36.0-46.0); Hemoglobin 12.4 g/dL (12.0-16.0); Immature Granulocytes % (Auto) 1 % (0-0); Immature Granulocytes Auto 0.03 Thou/mm3 (0.00-0.00); Lymphocytes # (Auto) 1.4 Thou/mm3 (1.0-4.8); Lymphocytes % (Auto) 23 % (10-50); Mean Corpuscular Hemoglobin 29.5 pg (25.0-35.0); Mean Corpuscular Volume 87 fL (80-100); Monocytes # (Auto) 0.5 Thou/mm3 (0.0-0.8); Monocytes % (Auto) 9 % (0-12); Neutrophils % (Auto) 65 % (37-80); Nucleated Red Blood Cell % 0 /100 WBC (0); Platelet Count 221 Thou/mm3 (140-440); RDW Standard Deviation 41.2 fL (36.4-46.3); White Blood Count 6.1 Thou/mm3 (3.6-11.0)
[2024-03-30 06:19] LABS: Glucose Estimated Average 123 mg/dL (80-131); Hemoglobin A1C 5.9 % Hgb (4.8-6.0)
[2024-03-30 06:25] LABS: Anion Gap 9 (7-16); BUN/Creatinine Ratio 27 Ratio (12-20); Blood Urea Nitrogen 16 mg/dL (9-23); Calcium 9.1 mg/dL (8.3-10.6); Carbon Dioxide 27.5 mMol/L (20.0-31.0); Cardiac Risk Estimate 4.4 RATIO (3.7-5.6); Chloride 102 mMol/L (98-107); Cholesterol 227 mg/dL (132-200); Creatinine (Component) 0.6 mg/dL (0.6-1.3); Estimated Creatinine Clearance 115.3 mL/min (>60); Glucose 131 mg/dL (74-106); HDL Cholesterol 52 mg/dL (40-60); LDL Cholesterol,Calculated 130 mg/dL (0-130); Osmolality,Calculated 278 (275-295); Phosphorous 2.9 mg/dL (2.4-5.1); Potassium 2.8 mMol/L (3.4-5.1); Sodium 138 mMol/L (136-145); Thyroid Stimulating Hormone 3.59 uIU/mL (0.55-4.78); Triglycerides 224 mg/dL (30-150); eGFR > 60 See Note
[2024-03-30] MEDS: LOSARTAN POTASSIUM 25 MG TABLET 100 MG PO (07:20)
[2024-03-30] MEDS: amLODIPine BESYLATE 5 MG TABLET PO (08:11)
[2024-03-30] MEDS: POTASSIUM CHLORIDE 20 mEq TABCR 40 MEQ PO (08:12)
--- NOTE | 2024-03-30 09:19 | PCS.ST ---
Tolerating diet. No dysphagia. Speech/communication skills baseline. No formal ST services warranted at this time.
[2024-03-30] MEDS: POTASSIUM CHLORIDE 20 mEq TABCR PO (10:22)
--- NOTE | 2024-03-30 11:00 | XR_ITS ---
Examination: CT brain head without contrast. 2-D sagittal coronal reconstructions Date and time of exam:March 30, 2024 1052 hours INDICATIONS: CT stroke alert March 29, 2024, 24 hours anticoagulants CTDI: vol (mGy):49.2 DLP: (mGycm):998 Technique: Multiple CT axial sections of the brain have been obtained, 5 mm slice thickness. Contrast has not been administered. 2-D sagittal, coronal reconstructions have been obtained Low dose protocols were performed. One or more of the following dose reduction techniques were used; automated exposure control, adjustment of the mA and/or KV according to patient size, use of iterative reconstruction technique. Findings: No significant ventricular enlargement. Small old infarct right basal ganglia Intra-axial or extra-axial hemorrhage density is not seen. No mass effect or midline shift Basal cisterns are not remarkable. Fourth ventricle is midline. Cranial vault intact. Impression: No interval acute hemorrhage, mass effect or midline shift
[2024-03-30] MEDS: LORazepam 2 MG/ML VIAL 1 MG IVP (11:26)
--- NOTE | 2024-03-30 13:21 | PC.SS ---
Update: MRI has been completed, repeat CT. Patient on room air. Plan is to downgrade patient to Tele.
[2024-03-30] MEDS: ASPIRIN EC 81 MG TABEC PO (15:19)
--- NOTE | 2024-03-30 16:35 | PD.RESEVENT ---
Documentation for date of: 03/30/24 Event Note Event Note: Ms. Desirae Gaona is a 53y/o female with a previous medical history of hypertension, CVA with no residual symptoms, dyslipidemia, history of alcohol abuse, and cholecystectomy in 2021 who was brought to the ED by her on 03/29/2024 for acute-onset left-sided weakness that began at approximately 9:30AM. She had woken up at 5AM that morning and noticed no neurological deficits at that time. She went through her normal morning routine, began to have posterior headache and neck pain later in the morning and fell back asleep. She awoke at 9:30AM with a sensation of numbness, which subjectively felt similar to her prior CVA 5 years ago. In the ED she was found to have hypertensive urgency with BP 180/126, HR 92, saturating well on room air, NIHSS 3, head CT negative for acute hemorrhage, mass effect, or midline shift. Labs only remarkable for mild hypokalemia, otherwise within normal limits. Teleneurology was consulted and noted left hemiparesis, hemisensory deficits, and gait impairment. Patient was given tPA 23.4mg for her CVA and started on a nicardipine drip before being transferred to the ICU. She was also placed on CIFL protocol for her history of alcohol abuse. In the ICU, patient was alert, oriented x3, following commands, and conversational with her neurological deficits completely resolved after administration of tPA. MRI brain performed demonstrating no acute hemorrhage, mass effect, midline shift, or acute infarct, only positive for small old infarcts of the right basal ganglia. After 24h in the ICU, patient was transferred back to [facility] floor for further management by hospitalist team starting on 03/31/2024. Case disclosed with Attending Dr. Barnard and my senior Dr. Harmon PGY3. Miki Baig PGY1
--- NOTE | 2024-03-30 16:45 | PC.PT ---
PT eval only. Patient is I with transfers and ambulation without AD.
--- NOTE | 2024-03-30 17:07 | ESPR_ITS ---
<Statement entered by Cassie Poe MD - 04/03/24 01:12> Patient was seen and examined by me personally. I have directly supervised and reviewed the above documentation by the team resident and agree with its findings with any exceptions or additional findings as below. Plan of care was discussed with the attending, Dr. Collado. Cassie Poe, PGY-2 Documentation for date of: 03/30/24 Subjective Subjective Interval history: 03/30/2024: Patient was seen and examined by the bedside. Overnight her systolic blood pressure went over the 180 and she was started on nicardipine drip. In the morning her blood pressure was in the 150s-160s, she was started on her home blood pressure medications and nicardipine drip was discontinued, aspirin was resumed. Patient is feeling well. She denies having headache, chest pain, weakness, numbness. She successfully passed a swallow screen and was started on a diet. Patient was downgraded to the floors, hospitalist team to assume care starting 03/31/2024. Exam Vital Signs Temp Pulse Resp BP Pulse Ox O2 Del Method 98.7 F 77 19 142/77 H 97 Room Air 03/30/24 16:00 03/30/24 16:00 03/30/24 16:00 03/30/24 16:00 03/30/24 16:00 03/30/24 16:00 Narrative Exam Physical Exam General: Awake and in no acute distress. Conversational and non-toxic appearing. HEENT: Normocephalic, atraumatic, mucous membranes moist. Heart: Regular rate and rhythm, no murmurs. Lungs: Clear to auscultation with no wheezing or crackles. Abdomen: Soft, nondistended, nontender, positive bowel sounds. ?No guarding or rebound tenderness. Neurologic: Alert and oriented x3, no gross neurological deficit, and patient able to move all 4 extremities. Extremities: No edema. Skin: No rash or ecchymoses. Objective Labs 04/01/24 04:54 04/01/24 04:54 Labs: Laboratory Results - last 24 hr 03/30/24 05:09 WBC 6.1 RBC 4.20 Hgb 12.4 Hct 36.5 MCV 87 MCH 29.5 MCHC 34.0 RDW Std Deviation 41.2 Plt Count 221 D Neut % (Auto) 65 Lymph % (Auto) 23 [place] % (Auto) 9 Eos % (Auto) 2 Baso % (Auto) 1 Neut # (Auto) 4.0 Lymph # (Auto) 1.4 [place] # (Auto) 0.5 Eos # (Auto) 0.1 Baso # (Auto) 0.0 Immature Gran # (Auto) 0.03 H Absolute Nucleated RBC 0.00 Immature Gran % 1 H Nucleated RBC % 0 Sodium 138 Potassium 2.8 L D Chloride 102 Carbon Dioxide 27.5 Anion Gap 9 BUN 16 Creatinine 0.6 Estim Creat Clear Calc 115.3 eGFR > 60 BUN/Creatinine Ratio 27 H Glucose [address] Glu mg/dL 123 Hemoglobin A1c 5.9 Calculated Osmolality 278 Calcium 9.1 Phosphorus 2.9 Magnesium 2.0 Triglycerides 224 H Cholesterol 227 H LDL Cholesterol, Calc 130 HDL Cholesterol 52 Cholesterol/HDL Ratio 4.4 TSH 3.59 Quality Measures Quality Measures stroke Suspected type of Stroke: Acute Ischemic Last known well (date): 03/29/24 Last known well (time): 09:30 Tenecteplase given: within 60 min of arrival (TNKase administered at 11:20 am ) Rehab services: PT evaluation ordered and Speech Language Pathology eval ordered VTE Prophylaxis: mechanical Antithrombotic by day 2:: ordered Statin ordered: >75 y/o moderate or high intensity dose Anticoagulation ordered for A-fib or flutter (current or hx): not indicated Assessment & Plan Assessment Current Active Medications: Generic Name Dose Route Start Last Admin Trade Name Freq PRN Reason Stop Dose Admin Acetaminophen 650 mg 03/29/24 13:11 Acetaminophen 325 Mg Tablet PO 04/28/24 13:10 Q4HR PRN Pain Scale 1-3 or Fever >100.4 Amlodipine Besylate 5 mg 03/30/24 09:00 03/30/24 08:11 Amlodipine Besylate 5 Mg Tablet PO 04/29/24 08:59 5 mg QDAY GER[place] Administration Aspirin 81 mg 03/30/24 15:15 03/30/24 15:19 Aspirin Ec 81 Mg Tabec PO 04/29/24 15:14 81 mg QDAY [place]ERMAN[place] Administration Atorvastatin Calcium 40 mg 03/29/24 21:00 03/29/24 20:10 Atorvastatin Calcium 20 Mg Tablet PO 04/28/24 20:59 40 mg HS GER[place] Administration Lorazepam 0.5 mg 03/29/24 17:43 Lorazepam 0.5 Mg Tablet PO 04/03/24 17:42 Q4HR PRN CIWA Score 2-6 Lorazepam 1 mg 03/29/24 17:43 Lorazepam 0.5 Mg Tablet PO 04/03/24 17:42 Q4HR PRN CIWA SCORE 7-11 Lorazepam 2 mg 03/29/24 17:43 Lorazepam 0.5 Mg Tablet PO 04/03/24 17:42 Q4HR PRN CIWA SCORE 12-15 Losartan Potassium 100 mg 03/30/24 07:00 03/30/24 07:20 Losartan Potassium 25 Mg Tablet PO 04/29/24 06:59 100 mg QDAY GER[place] Administration Ondansetron HCl 4 mg 03/29/24 10:39 Ondansetron Inj 2 Mg/Ml Inj 2 Ml IV 04/28/24 10:38 Q4HR PRN NAUSEA OR VOMITING Plan The patient is a 53-year-old female with a previous medical history of hypertension, CVA with no residual symptoms, dyslipidemia, cholecystectomy in 2021 who was brought to the ED by her at 10:26 AM 03/29/24 with complains of left extremities weakness and tingling, feeling that it's hard to breath. NEURO Patient is awake, alert, and oriented x3, following commands, conversational. #Acute stroke #Alcohol use Status post tenecteplase administration. Patient is back to the baseline. Patient passed swallow evaluation, was started on the diet. -CT brain: Unremarkable -MRI brain w/o contrast showed no new acute infarcts or bleeding, small old infarcts right basal ganglia. -Hemoglobin A1c normal. Plan: - CIWA protocol -HOB less than 30 degrees -Euglycemia -Avoid hyperthermia, PRN acetaminophen -DVT prophylaxis - SCDs -Inpatient Neurology consulted, appreciate recommendations -PT and speech evaluation were done, appreciate recommendations -echo ordered CARDIO #Hypertension #Hyperlipidemia EKG showed sinus rhythm. Plan: - resumed home losartan and amlodipine - resumed home aspirin 81 mg - lipid panel showed LDL 130 mg/dl - atorvastatin 40 mg qday PULM #No active problems GI #No active problems NEPHRO #No active problems URO #No active problems HEME #No active problems ENDO #No active problems ID #No active problems MSK #No active problems SKIN #No active problems DVT prophylaxis: SCDs GI prophylaxis: None Diet: cardiac Ortiz: None Lines: peripheral Antibiotics: none CODE STATUS: FULL CODE Disposition: to the [facility] [place] Plan of care discussed with attending Dr. Collado, PGY-[address] Poe and PGY-[address] Talley. Lashawn Farah MD, PGY 1. Attending Provider Attestation/Addendum Patient seen and examined with above resident, Lashawn Farah MD. I agree with the findings, assessment, and plan of care as documented except for any differences below. Patient continues to do well 24 hours after TNK administration for ischemic CVA. Return of neurologic function noted. Patient's blood pressure was maintained adequately in the ICU with transition to oral regimen for control. Patient passed swallow evaluation and tolerating p.o. diet. Patient is ready for transfer to [facility] for ongoing management prior to discharge. Additional workup to be completed for stroke evaluation as per protocol. Total critical care time: Personally spent 30 minutes for review of physiologic parameters, directing plan of care throughout the day, coordination of care with medicine, and counseling patient at bedside. This is exclusive of time spent teaching housestaff or performing any separate billable procedures. Patient continued to require critical care services for acute ischemic CVA status post thrombolytic therapy with accelerated hypertension.
[2024-03-30] MEDS: ATORVASTATIN CALCIUM 20 MG TABLET 40 MG PO (21:30)
--- NOTE | 2024-03-30 23:27 | PD.NEUROPROG ---
Documentation for date of: 03/30/24 Subjective Subjective Interval history: Patient is in ICU, status post tenecteplase. Denies any paresthesias or weakness in the left hemibody. Denies any headache or dizziness. Exam - Neurology Vital Signs Temp Pulse Resp BP Pulse Ox O2 Del Method 97.9 F 87 17 156/80 H 97 Room Air 03/30/24 20:00 03/30/24 20:00 03/30/24 20:00 03/30/24 20:00 03/30/24 20:00 03/30/24 20:00 Narrative Exam GENERAL APPEARANCE: Well hydrated, well-nourished in no acute distress. HEENT: Normocephalic, atraumatic, extraocular movements intact. Pupils: Equal reacting to light and accommodation NECK: Supple, no JVD or bruits. CARDIOVASULAR: Heart: S1, S2 heard, regular without S3-S4 or murmur no rubs or gallops. LUNGS/CHEST: Clear to auscultation bilaterally. No rails, rhonchi, or wheezing. Normal inspection. ABDOMEN: Soft, nontender, with normal bowel sounds. No pulsatile masses. No rebound, rigidity, or guarding. Normal inspection and palpation. EXTREMITIES: Normal inspection and palpation. No edema, clubbing or cyanosis. SKIN: Warm and dry without rashes. Normal inspection. MUSCULOSKELETAL: No cervical, thoracic, lumbar or midline bony tenderness. Normal inspection. NEURO: Alert, awake and oriented x3. Cranial nerves: II through XII grossly intact. Speech and language: Normal with no dysarthria or dysphasia. Motor system: Tone and bulk: Normal: Strength: 5 out of 5 in all 4 extremities; No pronator drift noted. Deep tendon reflexes: 2+ bilaterally symmetrical. Plantar reflex: Downgoing bilaterally. Sensory system: Intact to all modalities of sensation bilaterally. Coordination: Intact to [id number] and [id number] test bilaterally. No ataxia, no dysmetria, or dysdiadochokinesia noted. No intention tremors noted. Gait: Not tested. No signs of meningeal irritation noted. PSYCHIATRIC: Normal mood and affect. Objective Labs 03/30/24 05:09 03/30/24 05:09 Labs: Laboratory Results - last 24 hr 03/30/24 05:09 WBC 6.1 RBC 4.20 Hgb 12.4 Hct 36.5 MCV 87 MCH 29.5 MCHC 34.0 RDW Std Deviation 41.2 Plt Count 221 D Neut % (Auto) 65 Lymph % (Auto) 23 [place] % (Auto) 9 Eos % (Auto) 2 Baso % (Auto) 1 Neut # (Auto) 4.0 Lymph # (Auto) 1.4 [place] # (Auto) 0.5 Eos # (Auto) 0.1 Baso # (Auto) 0.0 Immature Gran # (Auto) 0.03 H Absolute Nucleated RBC 0.00 Immature Gran % 1 H Nucleated RBC % 0 Sodium 138 Potassium 2.8 L D Chloride 102 Carbon Dioxide 27.5 Anion Gap 9 BUN 16 Creatinine 0.6 Estim Creat Clear Calc 115.3 eGFR > 60 BUN/Creatinine Ratio 27 H Glucose [address] Glu mg/dL 123 Hemoglobin A1c 5.9 Calculated Osmolality 278 Calcium 9.1 Phosphorus 2.9 Magnesium 2.0 Triglycerides 224 H Cholesterol 227 H LDL Cholesterol, Calc 130 HDL Cholesterol 52 Cholesterol/HDL Ratio 4.4 TSH 3.59 Assessment & Plan Assessment and plan (1) Cerebrovascular accident: Status: Ruled-out Assessment and plan: Status post tenecteplase, complete resolution of symptoms. No residual deficit noted MRI brain showed no acute infarction. Echocardiogram: Normal study Continue with aspirin and statin Patient is neurologically stable for discharge (2) Hypertension: Status: Acute Assessment and plan: Continue aggressive blood pressure control
[2024-03-31] VITALS (16 sets, daily range): BP systolic 133–190; BP diastolic 73–106; PULSE 74–89; RESP 14–21; TEMP 36.2–36.8; O2SAT 91–99; BMI 38.5
[2024-03-31 05:44] LABS: Basophils % (Auto) 1 % (0-2.5); Eosinophils # (Auto) 0.1 Thou/mm3 (0.0-0.5); Eosinophils % (Auto) 2 % (0-10); Immature Granulocytes % (Auto) 1 % (0-0); Immature Granulocytes Auto 0.03 Thou/mm3 (0.00-0.00); Lymphocytes # (Auto) 1.3 Thou/mm3 (1.0-4.8); Lymphocytes % (Auto) 26 % (10-50); Mean Corpuscular HGB Conc 33.3 g/dl (31.0-37.0); Mean Corpuscular Hemoglobin 28.7 pg (25.0-35.0); Mean Corpuscular Volume 86 fL (80-100); Monocytes # (Auto) 0.4 Thou/mm3 (0.0-0.8); Monocytes % (Auto) 9 % (0-12); Neutrophils # (Auto) 3.2 Thou/mm3 (1.8-7.7); Neutrophils % (Auto) 62 % (37-80); Nucleated Red Blood Cell % 0 /100 WBC (0); Platelet Count 209 Thou/mm3 (140-440); RDW Standard Deviation 40.7 fL (36.4-46.3); Red Blood Count 4.18 Miln/mm3 (4.00-5.20); White Blood Count 5.2 Thou/mm3 (3.6-11.0)
[2024-03-31 06:10] LABS: Anion Gap 6 (7-16); BUN/Creatinine Ratio 30 Ratio (12-20); Blood Urea Nitrogen 15 mg/dL (9-23); Calcium 8.8 mg/dL (8.3-10.6); Carbon Dioxide 27.7 mMol/L (20.0-31.0); Chloride 105 mMol/L (98-107); Creatinine (Component) 0.5 mg/dL (0.6-1.3); Estimated Creatinine Clearance 138.4 mL/min (>60); Glucose 129 mg/dL (74-106); Osmolality,Calculated 280 (275-295); Potassium 3.6 mMol/L (3.4-5.1); Sodium 139 mMol/L (136-145); eGFR > 60 See Note
--- NOTE | 2024-03-31 06:24 | PC.NURSE ---
informed Dr Hoffmann that blood clot was noted when pt wiping post bowel movement
[2024-03-31] MEDS: LOSARTAN POTASSIUM 25 MG TABLET 100 MG PO (08:25)
[2024-03-31] MEDS: amLODIPine BESYLATE 5 MG TABLET PO (08:25)
[2024-03-31] MEDS: ASPIRIN EC 81 MG TABEC PO (08:25)
[2024-03-31] MEDS: LABETALOL INJ 5 MG/ML VIAL 20 ML 10 MG IVP ×2 (10:25→11:10)
--- NOTE | 2024-03-31 12:46 | PC.SS ---
Update: Patient is a tele overflow.
--- NOTE | 2024-03-31 13:26 | ESPR_ITS ---
<Statement entered by Marie Odonnell MD - 03/31/24 16:50> I discussed with and supervised the corporate strategy intern physician who took care of this patient. I personally saw and examined the patient and discussed the assessment and plan with the entire medicine team, including my attending Dr. Barnard, I agree with most of the assessment and plan as documented below Marie Odonnell M.D. PGY-2 Documentation for date of: 03/31/24 Subjective Subjective Interval history: Ms. Desirae Gaona is a Nepali-speaking 53y/o female with a previous medical history of hypertension, CVA with no residual symptoms, dyslipidemia, history of alcohol abuse, and cholecystectomy in 2021 who was brought to the ED by her on 03/29/2024 for acute-onset left-sided weakness that began at approximately 9:30AM. She had woken up at 5AM that morning and noticed no neurological deficits at that time. She went through her normal morning routine, began to have posterior headache and neck pain later in the morning and fell back asleep. She awoke at 9:30AM with a sensation of numbness, which subjectively felt similar to her prior CVA 5 years ago. In the ED she was found to have hypertensive urgency with BP 180/126, HR 92, saturating well on room air, NIHSS 3, head CT negative for acute hemorrhage, mass effect, or midline shift. Labs only remarkable for mild hypokalemia, otherwise within normal limits. Teleneurology was consulted and noted left hemiparesis, hemisensory deficits, and gait impairment. Patient was given tPA 23.4mg for her CVA and started on a nicardipine drip before being transferred to the ICU. She was also placed on CIWA protocol for her history of alcohol abuse. In the ICU, patient was alert, oriented x3, following commands, and conversational with her neurological deficits completely resolved after administration of tPA. MRI brain performed demonstrating no acute hemorrhage, mass effect, midline shift, or acute infarct, only positive for small old infarcts of the right basal ganglia. After 24h in the ICU, patient was transferred back to hospitalist team for further management. 03/31: No acute overnight events. This morning, patient noticed a very small blood clot while wiping after having a bowel movement, likely related to her administration of tenecteplase yesterday. Pt neurologically clear for discharge at this time per Dr. Odonnell. Blood pressure initially 133/92 in the morning, however on recheck in the early afternoon, systolic blood pressure janet up to 170s. Placed an order for labetalol 10mg q3h prn SBP >170 for better blood pressure control. Will keep inpatient today to monitor for hemodynamic stability. Exam Vital Signs Temp Pulse Resp BP Pulse Ox O2 Del Method 97.5 F 85 17 150/86 H 98 Room Air 03/31/24 12:01 03/31/24 12:01 03/31/24 12:01 03/31/24 12:03/31/24 12:03/31/24 12:01 Narrative Exam Gen: Alert, oriented x3, responsive to questions, in no acute distress HEENT: NCAT, PERRLA, EOMI, MMM, anicteric conjunctivae. CVS: normal S1 and S2. RRR. No M/R/G. Resp: CTA B/L. No rhonchi, rales, crackles or wheezing. Abd: soft, non-tender, non-distended. BS+ in all 4 quadrants. MSK: Good ROM in BUE & BLE. No edema or rash. Neuro: CN II-XII grossly intact. Strength 5/5 in BUE & BLE. Psych: appropriate mood and affect. Objective Labs 03/31/24 05:27 03/31/24 05:27 Labs: Laboratory Results - last 24 hr 03/31/24 05:27 WBC 5.2 RBC 4.18 Hgb 12.0 Hct 36.0 MCV 86 MCH 28.7 MCHC 33.3 RDW Std Deviation 40.7 Plt Count 209 Neut % (Auto) 62 Lymph % (Auto) 26 [place] % (Auto) 9 Eos % (Auto) 2 Baso % (Auto) 1 Neut # (Auto) 3.2 Lymph # (Auto) 1.3 [place] # (Auto) 0.4 Eos # (Auto) 0.1 Baso # (Auto) 0.0 Immature Gran # (Auto) 0.03 H Absolute Nucleated RBC 0.00 Immature Gran % 1 H Nucleated RBC % 0 Sodium 139 Potassium 3.6 D Chloride 105 Carbon Dioxide 27.7 Anion Gap 6 L BUN 15 Creatinine 0.5 L Estim Creat Clear Calc 138.4 eGFR > 60 BUN/Creatinine Ratio 30 H Glucose 129 H Calculated Osmolality 280 Calcium 8.8 Quality Measures Quality Measures stroke Suspected type of Stroke: Acute Ischemic Last known well (date): 03/29/24 Last known well (time): 09:30 Tenecteplase given: within 60 min of arrival (TNKase administered at 11:20 am ) Rehab services: PT evaluation ordered VTE Prophylaxis: mechanical Antithrombotic by day 2:: ordered Statin ordered: >75 y/o moderate or high intensity dose Anticoagulation ordered for A-fib or flutter (current or hx): not indicated Assessment & Plan Assessment Current Active Medications: Generic Name Dose Route Start Last Admin Trade Name Freq PRN Reason Stop Dose Admin Acetaminophen 650 mg 03/29/24 13:11 Acetaminophen 325 Mg Tablet PO 04/28/24 13:10 Q4HR PRN Pain Scale 1-3 or Fever >100.4 Amlodipine Besylate 5 mg 03/30/24 09:00 03/31/24 08:25 Amlodipine Besylate 5 Mg Tablet PO 04/29/24 08:59 5 mg QDAY GER[place] Administration Aspirin 81 mg 03/30/24 15:15 03/31/24 08:25 Aspirin Ec 81 Mg Tabec PO 04/29/24 15:14 81 mg QDAY GER[place] Administration Atorvastatin Calcium 40 mg 03/29/24 21:00 03/30/24 21:30 Atorvastatin Calcium 20 Mg Tablet PO 04/28/24 20:59 40 mg HS GERMANIA Administration Labetalol HCl 10 mg 03/31/24 10:13 03/31/24 10:25 Labetalol Inj 5 Mg/Ml Vial 20 Ml IVP 04/30/24 10:12 10 mg Q3HR PRN Administration SBP >170 Lorazepam 0.5 mg 03/29/24 17:43 Lorazepam 0.5 Mg Tablet PO 04/03/24 17:42 Q4HR PRN CIWA Score 2-6 Lorazepam 1 mg 03/29/24 17:43 Lorazepam 0.5 Mg Tablet PO 04/03/24 17:42 Q4HR PRN CIWA SCORE 7-11 Lorazepam 2 mg 03/29/24 17:43 Lorazepam 0.5 Mg Tablet PO 04/03/24 17:42 Q4HR PRN CIWA SCORE 12-15 Losartan Potassium 100 mg 03/30/24 07:00 11/27/24 08:25 Losartan Potassium 25 Mg Tablet PO 04/29/24 06:59 100 mg QDAY [place]ER[place] Administration Ondansetron HCl 4 mg 03/29/24 10:39 Ondansetron Inj 2 Mg/Ml Inj 2 Ml IV 04/28/24 10:38 Q4HR PRN NAUSEA OR VOMITING Plan Ms. Desirae Gaona is a Nepali-speaking 53y/o female with a previous medical history of hypertension, CVA with no residual symptoms, dyslipidemia, history of alcohol abuse, and cholecystectomy in 2021 who was brought to the ED by her on 03/29/2024 for acute-onset left-sided weakness that began at approximately 9:30AM. She had woken up at 5AM that morning and noticed no neurological deficits at that time. She went through her normal morning routine, began to have posterior headache and neck pain later in the morning and fell back asleep. She awoke at 9:30AM with a sensation of numbness, which subjectively felt similar to her prior CVA 5 years ago. In the ED she was found to have hypertensive urgency with BP 180/126, HR 92, saturating well on room air, NIHSS 3, head CT negative for acute hemorrhage, mass effect, or midline shift. Labs only remarkable for mild hypokalemia, otherwise within normal limits. Teleneurology was consulted and noted left hemiparesis, hemisensory deficits, and gait impairment. Patient was given tPA 23.4mg for her CVA and started on a nicardipine drip before being transferred to the ICU. She was also placed on CICA protocol for her history of alcohol abuse. In the ICU, patient was alert, oriented x3, following commands, and conversational with her neurological deficits completely resolved after administration of tPA. MRI brain performed demonstrating no acute hemorrhage, mass effect, midline shift, or acute infarct, only positive for small old infarcts of the right basal ganglia. After 24h in the ICU, patient was transferred back to hospitalist team for further management. #Acute CVA On initial presentation to ED, patient complaining of left-sided weakness, NIH score 3, cranial imaging negative for acute changes but positive for old infarcts consistent with patient history of prior CVA in the past - Continue aspirin and statin per neurology - Echocardiogram with bubble study negative - PT/AGENCY DIRECTOR evaluations performed, no further physical therapy needed at this time - Neurologically stable for discharge at this time #Essential Hypertension #Hypertensive Urgency Present prior to admission, in hypertensive urgency on initial presentation to ED at 180/126. Initially controlled with nicardipine drip in ICU - Nicardipine drip removed - Home medications losartan 100mg PO qd and amlodipine 5mg PO qd started - Added labetalol 10mg q3h prn SBP >170 - Will continue to monitor daily #Alcohol use disorder Present prior to admission, CIWA score currently 0 - On CIWA protocol - Counseled on alcohol cessation - Will continue to monitor for signs of withdrawal/increasing CIWA score Health maintenance: Disposition: Telemetry Diet: Cardiac GI prophylaxis: None indicated DVT prophylaxis: SCDs Code: Full code Case disclosed with Attending Dr. Barnard and my senior Dr. Odonnell PGY2. Miki Baig PGY1 Attending Provider Attestation/Addendum In short, the patient is a 53-year-old female with significant past medical history of hypertension, CVA with no residual deficits, HLD, EtOH abuse, cholecystectomy in 2021 was brought to the ED for symptoms of left-sided weakness which began at approximately 930 the morning of admission. Patient subsequently admitted for CVA workup. The patient was also found to have hypertensive urgency at the time of admission. Initial CT head negative for any acute intracranial pathology, the patient was given tPA and started on nicardipine drip upon admission to the ICU initially. Patient transferred back to medicine team on 03/31 for further management. Initial CT head negative for any acute intracranial pathology, CTA head and neck negative for any significant arterial stenosis, echo performed on 03/29 demonstrated negative bubble study however suboptimal to completely rule out PFO or ASD. Noted EF 60 to 65% with stage I diastolic dysfunction. MRI brain negative for any acute intracranial pathology repeat CT head on 03/30 was also negative for any acute intracranial pathology. Last EKG demonstrating NSR. INTERVAL HX: 03/31: No acute events overnight, blood pressure reportedly controlled in the 130s and 140s however this morning bedside visit SBP was 190 millimeters Hg. Patient afebrile overnight, SpO2 98% on room air. Labs unremarkable today. ASSESSMENT: #CVA?ruled out, patient's status post tPA, complete resolution of symptoms #History of CVA with no residual deficits 1. Neurology consulted, will continue aspirin and statin per recommendations. Patient stable for discharge from a neurology standpoint #Hypertensive emergency #History of essential hypertension 1. Will continue home medications, losartan 100 mg p.o. daily, amlodipine 5 mg p.o. daily and will add hydrochlorothiazide today #EtOH abuse 1. SELWYN ordered DISPO: Likely discharge 04/01 home pending improved BP control
[2024-03-31] MEDS: ATORVASTATIN CALCIUM 20 MG TABLET 40 MG PO (20:57)
--- NOTE | 2024-03-31 23:49 | PD.VPROG1 ---
Telemedicine visit statement This visit was conducted with the use of phone visit was obtained on 03/31/24 at 2349. Documentation for date of: 03/31/24 Subjective Subjective Interval history: Patient is in telemetry today. No new symptoms reported. Blood pressure reportedly was elevated with a systolic in the 190s at times Virtual exam Vital Signs Temp Pulse Resp BP Pulse Ox O2 Del Method 97.9 F 82 18 145/78 H 98 Room Air 03/31/24 20:00 03/31/24 20:00 03/31/24 20:00 03/31/24 20:00 03/31/24 20:00 03/31/24 20:00 Objective Labs 03/31/24 05:27 03/31/24 05:27 Labs: Laboratory Results - last 24 hr 03/31/24 05:27 WBC 5.2 RBC 4.18 Hgb 12.0 Hct 36.0 MCV 86 MCH 28.7 MCHC 33.3 RDW Std Deviation 40.7 Plt Count 209 Neut % (Auto) 62 Lymph % (Auto) 26 [place] % (Auto) 9 Eos % (Auto) 2 Baso % (Auto) 1 Neut # (Auto) 3.2 Lymph # (Auto) 1.3 [place] # (Auto) 0.4 Eos # (Auto) 0.1 Baso # (Auto) 0.0 Immature Gran # (Auto) 0.03 H Absolute Nucleated RBC 0.00 Immature Gran % 1 H Nucleated RBC % 0 Sodium 139 Potassium 3.6 D Chloride 105 Carbon Dioxide 27.7 Anion Gap 6 L BUN 15 Creatinine 0.5 L Estim Creat Clear Calc 138.4 eGFR > 60 BUN/Creatinine Ratio 30 H Glucose 129 H Calculated Osmolality 280 Calcium 8.8 Assessment & Plan Assessment 1) TIA/CVA: Ruled out acute stroke based on the negative MRI brain Status post tenecteplase, complete resolution of symptoms. No residual deficit noted MRI brain showed no acute infarction. Echocardiogram: Normal study Continue with aspirin and statin Patient is neurologically stable. (2) Hypertension: Continue aggressive blood pressure control
[2024-04-01] VITALS: BP 136/72; PULSE 69; PULSE 79; RESP 18; TEMP 36.6; O2SAT 98
[2024-04-01 04:00] VITALS: BP 157/84; PULSE 70; PULSE 72; RESP 18; TEMP 36.5; O2SAT 98
[2024-04-01 05:48] LABS: Basophils % (Auto) 0 % (0-2.5); Eosinophils # (Auto) 0.2 Thou/mm3 (0.0-0.5); Eosinophils % (Auto) 3 % (0-10); Hematocrit 35.9 % (36.0-46.0); Immature Granulocytes % (Auto) 1 % (0-0); Immature Granulocytes Auto 0.05 Thou/mm3 (0.00-0.00); Lymphocytes # (Auto) 1.4 Thou/mm3 (1.0-4.8); Lymphocytes % (Auto) 24 % (10-50); Mean Corpuscular HGB Conc 33.4 g/dl (31.0-37.0); Mean Corpuscular Hemoglobin 28.9 pg (25.0-35.0); Mean Corpuscular Volume 87 fL (80-100); Monocytes # (Auto) 0.5 Thou/mm3 (0.0-0.8); Monocytes % (Auto) 9 % (0-12); Neutrophils # (Auto) 3.9 Thou/mm3 (1.8-7.7); Neutrophils % (Auto) 64 % (37-80); Nucleated Red Blood Cell % 0 /100 WBC (0); Platelet Count 206 Thou/mm3 (140-440); RDW Standard Deviation 40.4 fL (36.4-46.3); Red Blood Count 4.15 Miln/mm3 (4.00-5.20); White Blood Count 6.1 Thou/mm3 (3.6-11.0)
[2024-04-01 05:54] VITALS: BMI 38.2
[2024-04-01 06:15] LABS: Anion Gap 6 (7-16); BUN/Creatinine Ratio 24 Ratio (12-20); Blood Urea Nitrogen 12 mg/dL (9-23); Calcium 8.9 mg/dL (8.3-10.6); Carbon Dioxide 28.2 mMol/L (20.0-31.0); Chloride 105 mMol/L (98-107); Creatinine (Component) 0.5 mg/dL (0.6-1.3); Estimated Creatinine Clearance 136.4 mL/min (>60); Glucose 119 mg/dL (74-106); Osmolality,Calculated 278 (275-295); Potassium 3.6 mMol/L (3.4-5.1); Sodium 139 mMol/L (136-145); eGFR > 60 See Note
[2024-04-01 08:00] VITALS: BP 161/94; PULSE 81; PULSE 86; RESP 24; TEMP 36.2; O2SAT 97
[2024-04-01 09:21] VITALS: BP 161/94; PULSE 86
[2024-04-01] MEDS: LOSARTAN POTASSIUM 25 MG TABLET 100 MG PO (09:21)
[2024-04-01] MEDS: amLODIPine BESYLATE 5 MG TABLET PO (09:21)
[2024-04-01 09:22] VITALS: BP 161/94; PULSE 86
[2024-04-01] MEDS: ASPIRIN EC 81 MG TABEC PO (09:22)
[2024-04-01] MEDS: hydroCHLOROthiazide 12.5 MG CAPSULE 25 MG PO (09:22)
[2024-04-01 11:10] VITALS: BP 151/81; PULSE 82; RESP 19; TEMP 36.6; O2SAT 96
--- NOTE | 2024-04-01 11:45 | ESDS_ITS ---
<Statement entered by Marie Odonnell MD - 04/01/24 16:50> I discussed with and supervised the sports internship physician who took care of this patient. I personally saw and examined the patient and discussed the assessment and plan with the entire medicine team, including my attending , I agree with most of the assessment and plan as documented below Marie Odonnell M.D. PGY-2 Planned Discharge Date 04/01/24 DS: Providers Provider Date of admission: 03/29/24 13:11 Primary care physician: Greg Storey MD Admitting Provider: Marquise Collado MD Attending Provider on Admission: Andre Barnard DO Consults: 03/29/24 10:39 Consult to Neurology / Tele-Neurology Routine Comment: Consulting Provider: [facility] 03/29/24 13:15 Consult to Neurology / Tele-Neurology Stat Comment: stroke s/p tenecteplase Consulting Provider: Daniel Odonnell 03/29/24 13:16 Referral Physical Therapy Stat Comment: Physician Instructions: Referral Speech Therapy Stat Comment: Attending Provider on DC: Bubba Cunha MD Discharging Provider: Bubba Cunha MD DS: Diagnosis Problem List Completed Was Problem List Reviewed/Reconciled?: Yes Hospital Course Hospital Course Hospital course: 53-year-old female with past medical history of hypertension, CVA with no residual symptoms, dyslipidemia, cholecystectomy 2021, alcohol use disorder presented on 03/29 to the ED with reports of left extremity weakness and tingling and dyspnea. Head CT was negative for any acute hemorrhage or midline shift; moreover, teleneurology examined and revealed an NIHSS score of 3 and it was decided to administer her with tenecteplase 23.4 mg and admit to ICU. Patient was downgraded from the ICU on 03/30 upon making marked improvement and her symptoms dispersing; moreover, nicardipine drip which was initiated in the ED was discontinued as her blood pressure improved. Neurology, Dr. Odonnell, was consulted for status post tenecteplase and her recommendations upon MRI brain showing no acute infarction and echocardiogram showing normal study were to continue aspirin and statin. Patient's blood pressure medications were changed while in the hospital; she improved markedly, and will be discharged with the following strict instructions. Please take your home medications as prescribed. We increased your blood pressure medication; Amlodipine to 10mg once a day Please start taking Atorvastatin 40mg at night to help control your cholesterol. Please follow up with your PCP within 1 week. Please come back to the ED if you develop new/worsening chest pain, shortness of breath or dizziness/headache (Also translated to Monegasque) Hospital Diagnosis: #TIA #Essential Hypertension #Hypertensive Urgency, resolved #Alcohol use disorder Bubba Cunha, PGY-1 Status at Discharge Overall status at discharge: patient is progressing back to baseline Time Spent with Patient Time attestation: Total time spent providing and/or coordinating discharge services: 45 minutes Time spent: Greater than 30 minutes Exam Vital Signs Temp Pulse Resp BP Pulse Ox O2 Del Method 97.2 F 86 24 H 161/94 H 97 Room Air 04/01/24 08:00 04/01/24 09:22 04/01/24 08:00 04/01/24 09:22 04/01/24 08:00 04/01/24 08:00 Narrative Exam Gen: Alert, oriented x3, responsive to questions, in no acute distress HEENT: NCAT, PERRLA, EOMI, MMM, anicteric conjunctivae. CVS: normal S1 and S2. RRR. No M/R/G. Resp: CTA B/L. No rhonchi, rales, crackles or wheezing. Abd: soft, non-tender, non-distended. BS+ in all 4 quadrants. MSK: Good ROM in BUE & BLE. No edema or rash. Neuro: CN II-XII grossly intact. Strength 5/5 in BUE & BLE. Psych: appropriate mood and affect. Discharge Plan Plan Patient Disposition: HOME (Self Care) Prescriptions/Referrals Prescriptions/Med Rec: New atorvastatin 40 mg tablet 40 mg PO HS 30 Days Qty: 30 0RF amlodipine 10 mg tablet 10 mg PO QDAY 30 Days Qty: 30 0RF Continued aspirin 325 mg Tablet 81 mg PO 1XD hydrochlorothiazide 25 mg tablet 25 mg PO 1XD losartan 100 mg tablet 100 mg PO 1XD Discontinued Amlodipine Bes * (NORVASC *) 5 mg tablet 1 tab PO QDAY Qty: 0 amlodipine 5 mg tablet 5 mg PO QDAY Patient Comments: TOME 1 TABLETA POR V A ORAL TODOS LOS D FOR 30 DAYS Referrals: Greg Storey MD [Primary Care Provider] - Patient/Caregiver Discharge Instructions Other Discharge Activity Instructions:: Please take your home medications as prescribed. We increased your blood pressure medication; Amlodipine to 10mg once a day Please start taking Atorvastatin 40mg at night to help control your cholesterol. Please follow up with your PCP within 1 week. Please come back to the ED if you develop new/worsening chest pain, shortness of breath or dizziness/headache [place] [facility] seg?n lo recetado. Aumentamos delaney medicaci?n para la presi?n arterial; Amlodipino a 10 mg reji vez al d?a Emp[place] a boo Atorvastatina 40 mg por la noche para ayudar a controlar el colesterol. Anneliese un seguimiento con delaney PCP dentro de 1 semana. Vuelva al servicio de urgencias si presenta dolor en el pecho nuevo o que empeora, dificultad para respirar o mareos o dolor de shannan. Education Materials: Hypertension and Kidney Disease, Hypertension Stroke Link Print Language: Monegasque Stand Alone Forms: [employer] Award Info., Patient Portal Info Letter Discharge Order Discharge Orders: Discharge (Routine); Ordered 04/01/24 Ordered By: Bubba Cunha Quality Discharge Quality Measures VTE prophylaxis MD Attestestation MD Attestation I have discussed and was present for the essential components of the discharge history, physical examination, diagnosis, and discharge treatment plan with the resident. I agree with the patient's discharge care as documented by the resident and amended herein by me. Chadwick Barnard DO. The patient understood all discharge instructions, all questions were answered satisfactorily. The patient was instructed to return to the Emergency Department is symptoms worsened or persisted. Will will up titrate the patient's home amlodipine 10 mg daily, emphasized importance of medication compliance. Patient will need close follow-up with PCP to optimize blood pressure medications in the future. Patient stable, tolerating p.o. intake, afebrile and ambulatory at time of discharge. Although this document has been carefully reviewed, there may still be some phonetic and other typographical errors. These errors are purely grammatical due to imperfections in the software program and should not be construed in any way to compromise the substance of the patient's medical care during this visit.
== END 2024-04-01 11:16 | disposition home or self-care (01) | DRG 47 ==
LOC: SERX 11:55 → SERHOLD 13:23 → S2SX 14:49 → S2NX 03-31 14:47
PROVIDERS: Student in an Organized Health Care Education/Training Program; Admitting Provider Internal Medicine Critical Care Medicine; Emergency Provider Emergency Medicine; PCP Family Medicine; Visit Provider Student in an Organized Health Care Education/Training Program
DX: G45.9 Transient cerebral ischemic attack, unspecified (principal); E87.6 Hypokalemia; F10.10 Alcohol abuse, uncomplicated; I10 Essential (primary) hypertension; I16.0 Hypertensive urgency; E78.5 Hyperlipidemia, unspecified; Z86.73 Personal history of transient ischemic attack (TIA), and cerebral infarction without residual deficits; Z90.49 Acquired absence of other specified parts of digestive tract
CPT/HCPCS: 36415; 70450; 70496; 70498; 70551; 80048; 80053; 80061; 81001; 83036; 83735; 84100; 84443; 84484; 85014; 85018; 85025; 85610; 85730; 87081; 87086; 93005; 93306; 97162; 99291; A4649; J1200; J2060; J2404; J3101; J3490; Q9967; A9270; J1920

== ENCOUNTER 2024-06-25 09:58 | Emergency (ER) | payer MEDICAID, SELFPAY ==
--- NOTE | 2024-06-25 11:43 | XR_ITS ---
Examination: Fingers, left hand second digit 3 views 3 views Technique: AP, oblique, lateral views left hand second digit 3 views. Exam date and time: June 25, 2024 1144 hours INDICATIONS: Laceration to the hand second digit pain today. FINDINGS: Soft tissue swelling about the second digit No acute fracture 1 mm opacity in the soft tissue adjacent to the proximal phalanx second digit on the oblique view IMPRESSION: 1 mm opacity in the soft tissue adjacent to the proximal phalanx second digit on the oblique view, clinical correlation advised
[2024-06-25] MEDS: DIPHTH,PERTUSS(ACELL),TET VAC 0.5 ML SYR IMi (12:51)
[2024-06-25] MEDS: LIDOCAINE HCL 1% 20 ML VIAL 10 ML INFL (13:04)
--- NOTE | 2024-06-25 13:37 | EDNOTE_ITS ---
ED Animal Bite RME/HPI General Chief Complaint: Animal Bite Stated Complaint: DOG BITE TO LEFT INDEX FINGER Time Seen by Provider: 06/25/24 11:10 Source: patient Arrival date/time: 06/25/24 09:58 This is a 53-year-old female presents the emergency department with complaints of Dog bite to her right first digit. She does report she was her own dogs from fighting each other when she was accidentally bit by one of her dogs. She reports this incident happened yesterday she did clean area and wash area and applied Neosporin last night. She did notice that the laceration, was mildly deep requiring stitches prompting her ED visit today. Patient does have full range of motion of digit no other concerns. Limitations: no limitations Related Data Home Medications ?Medication ?Instructions ?Recorded ?Confirmed aspirin 325 mg tablet 81 mg PO 1XD 12/29/21 hydrochlorothiazide 25 mg tablet 25 mg PO 1XD 12/29/21 03/29/24 losartan 100 mg tablet 100 mg PO 1XD 12/29/2103/29 Previous Rx's ?Medication ?Instructions ?Recorded amoxicillin 875 mg-potassium 1 tab PO BID #14 tabs clavulanate 125 mg tablet ibuprofen 800 mg tablet (IBU) 800 mg PO Q8H #20 tabs 0 06/25/24 Allergies Allergy/AdvReac Type Severity Reaction Status Date / Time No Known Allergies Allergy Verified 06/25/24 10:01 Review of Systems Review of Systems Systems Reviewed: All systems reviewed, normal except as documented Narrative Review of Systems: Gen: No fever, no chills, no weight loss EYES: No discharge, no visual changes, no pain HEENT: No ear pain, no congestion, no sore throat PULM: No shortness of breath, no cough, no congestion CV: No chest pain, no dyspnea on exertion, no palpitations GI: No nausea, no vomiting, no diarrhea, no pain, no constipation : No frequency, no urgency, no dysuria Musc/skel: No joint pain, no back pain Skin: + Dog bite/lac Psyc: No hallucinations, no depression Heme/Lymph: No easy bleeding or bruising tendencies Neuro: No weakness, no headache ED Exam General Limitations: Present no limitations General appearance: Present alert and in no apparent distress Head Head exam: Present atraumatic Eye Eye exam: Present normal appearance, PERRL and EOMI ENT ENT exam: Present normal exam, normal oropharynx and mucous membranes moist Neck Neck exam: Present normal inspection, full ROM and trachea midline Chest Chest inspection: Present normal inspection and symmetric chest wall rise Respiratory Respiratory exam: Present normal lung sounds bilaterally Cardiovascular Cardiovascular exam: Present regular rate, normal rhythm and normal heart sounds Abdominal Exam Abdominal exam: Present soft and normal bowel sounds Extremities Exam Extremities exam: Present normal inspection and full ROM Expanded Upper Extremity Exam Shoulder exam: Present normal inspection Arm exam: Present normal inspection Hand L/R back image: 2 1. 2 cm laceration noted to her dorsum of proximal second digit left hand. No deep structures and identified no foreign bodies noted. Full range of motion noted Back Exam Back exam: Present normal inspection and full ROM Neurological Exam Neurological exam: Present alert, oriented X3 and CN II-XII intact Psychiatric Psychiatric exam: Present normal affect and normal mood Skin Skin exam: Present warm, dry, intact and normal color Course Quality Measures none Orders Category Date Time Status Suture / Staple Removal NOW Care 06/25/24 11:43 Completed Wound Care NOW Care 06/25/24 11:43 Completed XR finger LT min 2V Stat Exams 06/25/24 11:43 Completed Lidocaine 1% 20 ml [Xylocaine 1% 20 ML] Med 06/25/24 12:34 Discontinued 10 ml INFL X1 ONE Tet,Diphth,Pertuss(Acell)-Tdap [Boostrix Vacc] Med 06/25/24 11:43 Discontinued 0.5 ml IMI .ONCE ONE Procedures -ED Laceration Laceration 1: Site: hand Side (If applicable): left Size (cm): 2 Description: stellate, flap and irregular Depth: simple, single layer Local Anesthetic: lidocaine 1% Amount of anesthesia used (mL): 5 Pre-repair: wound explored, irrigated extensively and deep structures intact Skin layer closed with: vicryl Size (cm): 4-0 Number of sutures: 7 Technique: simple, interrupted Subcutaneous layer closed with: vicryl Animal Bite MDM Narrative MDM Narrative:: This is a 53 y female with dog bite to her left 2nd digit with history and exam consistent with lower risk for infection. X-ray was obtained no fracture. Radiologist read for possible opaque foreign body, however patient's digit was extensively irrigated no foreign body visible. ?Patient noted to have full active and passive range of motion of the second digit despite mild pain.??Laceration was repaired, see procedure note. ?Wounds cleaned and dressed in the ED prior to discharge.? Tetanus status was updated prior to discharge. Discussed discharge with analgesics/prophylactic antibiotics, suture care and follow up with primary care doctor 48 hours and the patient demonstrated understanding and agreement. Patient data External records reviewed:: [facility] previous records Clinical information provided by:: patient Social determinants that could affect healthcare access:: none Patient has the following chronic illnesses:: No How is presenting disease/condition affected by chronic disease/condition?: no chronic disease Evaluation data The following diagnostics were reviewed and interpreted by me:: radiology exam(s) Lab and/or radiology exams considered but not ordered:: no Interpretation Summary: Examination: Fingers, left hand second digit 3 views 3 views Technique: AP, oblique, lateral views left hand second digit 3 views. Exam date and time: June 25, 2024 1144 hours INDICATIONS: Laceration to the hand second digit pain today. FINDINGS: Soft tissue swelling about the second digit No acute fracture 1 mm opacity in the soft tissue adjacent to the proximal phalanx second digit on the oblique view IMPRESSION: 1 mm opacity in the soft tissue adjacent to the proximal phalanx second digit on the oblique view, clinical correlation advised Medications / Prescriptions Medications or Prescriptions considered but not ordered:: no injury good job of Medication administrations:: Medication Administration History Discontinued Medications Diphtheria/Tetanus/Acell Pertussis (Diphth,Pertuss(Acell),Tet Vac 0.5 Ml Syr) 0.5 ml IMi .ONCE ONE Stop: 06/25/24 11:44 Last Admin: 06/25/24 12:51 Dose: 0.5 ml Documented By: ROBERT Lidocaine HCl (Lidocaine Hcl 1% 20 Ml Vial) 10 ml INFL X1 ONE Stop: 06/25/24 12:35 Last Admin: 06/25/24 13:04 Dose: 10 ml Documented By: ROBERT All medications administered and effective Consultations Consultation(s) initiated? (list below): No Diagnosis Differential diagnosis animal bite: bite by animal, cat bite and dog bite Most likely diagnosis given after review of the tests above:: Dog bite, lack repair Admission Indicated Admission indicated?: not indicated Admission Request Was there a request for admission?: No Disposition Plan Disposition Plan: Discharge Discharge Attestation Discharge Attestation: The patient and all family members were given an opportunity to ask questions and understood the discharge instructions. Discharge instructions specifically effects, indications for sooner follow up or return to the emergency department, and the expected course of current diagnosis. Patient condition: Stable Discharge Plan Plan Patient Disposition: HOME (Self Care) Patient condition on transfer: Stable Prescriptions/Referrals Prescriptions/Med Rec: New amoxicillin-pot clavulanate 875-125 mg tablet 1 tab PO BID Qty: 14 0RF ibuprofen [IBU] 800 mg tablet 800 mg PO Q8H Qty: 20 0RF No Action aspirin 325 mg Tablet 81 mg PO 1XD hydrochlorothiazide 25 mg tablet 25 mg PO 1XD losartan 100 mg tablet 100 mg PO 1XD Problem List Clinical Impression: Dog bite Patient/Caregiver Discharge Instructions Education Materials: ED Animal Bite (General) Additional Instructions: Keep area clean and dry. Please have the sutures removed in 7 to 14 days. If you notice any signs of infection please return to the emergency department Take antibiotics as directed. Print Language: Divehi Stand Alone Forms: Amy Award Info., Patient Portal Info Letter PAL/JAKE Supervising Physician PAL/JAKE Supervising Physician: Dr Diaz
== END 2024-06-25 14:03 | disposition home or self-care (01) ==
LOC: SERX 13:56
PROVIDERS: Emergency Provider Emergency Medicine; PCP Family Medicine
DX: S61.251A Open bite of left index finger without damage to nail, initial encounter (principal); W54.0XXA Bitten by dog, initial encounter; Z23 Encounter for immunization
CPT/HCPCS: 12001; 73140; 90471; 90715; 99283; J3490

== ENCOUNTER → 2025-01-12 | Outpatient (CLI) | payer MEDICAID, SELFPAY ==
--- NOTE | 2025-01-12 12:18 | XR_ITS ---
Examination: Hand, left 3 views Technique: Hand AP, oblique, lateral 3 views Date and time of exam: January 12, 1327 hours INDICATIONS: Injury to hand 4 days ago with hand pain and swelling FINDINGS: No acute fracture. No dislocation Soft tissue swelling dorsum of the hand IMPRESSION: No acute fracture
== END | disposition home or self-care (01) ==
PROVIDERS: PCP Specialist; Referring Provider Specialist; Visit Provider Specialist
DX: S69.92XA Unspecified injury of left wrist, hand and finger(s), initial encounter (principal); X58.XXXA Exposure to other specified factors, initial encounter
CPT/HCPCS: 73130